=== PATIENT | female | born 1945 | race Asian ===

== ENCOUNTER 2021-05-26 08:28 | Inpatient (IN) | payer BC, MEDICAID, SELFPAY ==
[~2021-05-26] VITALS: Ht 154.9 cm; Wt 59.0 kg
--- NOTE | 2021-05-26 08:31 | NUR ---
Placed in room 3 . Placed on compliance monitor, blood pressure machine and pulse oximeter. To gown for exam. Side rails up. Report given to TREVON Desir.
[2021-05-26 08:32] VITALS: BP_SYST 175
--- NOTE | 2021-05-26 08:35 | NUR ---
DR SZYMANSKI AT BEDSIDE FOR EVALUATION
--- NOTE | 2021-05-26 08:45 | NUR ---
SUMM: Pt. bib ACLS from home with ALOC, pt. awake but non verbal, reported hx. of HTN and DM, accu check 462, 2nd IV line placed and labs drawn, EKG done, pt. placed in gown and clean was incontinent of stool, in and out schultz done to obtain urine sample urine clear but pink, O2 sat 93% on RA placed on NC at 2L/min with sat. increasing to 95%, LR hung and infusing
[2021-05-26 08:59] LABS: BASOPHILS % (AUTO) 0.5 % (0.0-2.0); EOSINOPHILS % (AUTO) 0.8 % (0.0-4.0); HEMATOCRIT 39.9 % (36-48); HEMOGLOBIN 12.4 g/dL (12.0-16.0); LYMPHOCYTES # (AUTO) 0.7 K/uL (1.0-5.5); LYMPHOCYTES % (AUTO) 14.3 % (20.5-51.5); MEAN CORPUSCULAR HEMOGLOBIN 21 pg (27-31); MEAN CORPUSCULAR HGB CONC 31 % (32-36); MEAN CORPUSCULAR VOLUME 67 fL (79.0-98.0); MONOCYTES % (AUTO) 0.3 % (1.7-9.3); NEUTROPHILS # (AUTO) 4.1 K/uL (1.8-7.7); NEUTROPHILS % (AUTO) 84.1 % (40.0-70.0); PLATELET COUNT (AUTO) 266 K/uL (130-430); RED BLOOD CELL COUNT(AUTO) 5.93 MIL/uL (4.2-6.2); RED CELL DISTRIBUTION WIDTH 15.8 % (9.0-15.0); WHITE BLOOD COUNT (AUTO) 4.8 K/uL (4.8-10.8)
--- NOTE | 2021-05-26 09:03 | NUR ---
Pt. more awake, able to tell me her name with arousing and able to follow simple commands
[2021-05-26 09:12] LABS: BILIRUBIN,URINE NEGATIVE (NEGATIVE); BLOOD, URINE 3+ (NEGATIVE); CLARITY/URINE SL CLOUDY (CLEAR); COLOR,URINE BROWN (YELLOW); GLUCOSE,URINE 3+ (NEGATIVE); KETONES,URINE NEGATIVE (NEGATIVE); LEUKOCYTE ESTERASE ,URINE NEGATIVE (NEGATIVE); NITRITE, URINE POSITIVE (NEGATIVE); PROTEIN URINE 2+ (NEGATIVE); UROBILINOGEN,URINE 0.2 (0.2-1.0)
--- NOTE | 2021-05-26 09:20 | NUR ---
spoke with patients son who stated pt. is typically talkative, and oriented, states she did not go home last night, he is aware she takes oral medications for DM, requested him to obtain list of medications, he will call back
--- NOTE | 2021-05-26 09:22 | NUR ---
radiology at bedside for chest xray
--- NOTE | 2021-05-26 09:24 | NUR ---
Patient transported to radiology via gurney, accompanied by staff.
--- NOTE | 2021-05-26 09:41 | NUR ---
Pt. sleepy, arousable, oriented X4
[2021-05-26 09:44] LABS: BARBITURATE, URINE NEGATIVE (NEG <=200); BENZODIAZEPINE, URINE NEGATIVE (NEG <=150); CANNABINOID, URINE NEGATIVE (NEG <=50); COCAINE, URINE NEGATIVE (NEG <=150); METHAMPHETAMINES SCREEN,URINE NEGATIVE (NEG <=500); OPIATE, URINE NEGATIVE (NEG <=100); PHENCYCLIDINE SCREEN,URINE NEGATIVE (NEG <=25); UR TRICYCLIC ANTIDEPRESSANTS NEGATIVE (NEG <=300); URINE AMPHETAMINE NEGATIVE (NEG <=500); URINE METHADONE NEGATIVE (NEG <=200); URINE OXYCODONE SCREEN NEGATIVE (NEG <=100); URINE PROPOXYPHENE SCREEN NEGATIVE (NEG <=300)
--- NOTE | 2021-05-26 09:58 | NUR ---
Pts. cousin at bedside
[2021-05-26] MEDS ORDERED: NACL 0.9% 1,000 ML IV ONE (10:15)
--- NOTE | 2021-05-26 10:31 | NUR ---
Pt. requested to use bathroom, placed on bedpan voided small amount of blood tinged urine
[2021-05-26 10:33] LABS: INR 0.9 (0.8-1.2); PROTHROMBIN TIME 9.4 SECS (9.5-12.5)
[2021-05-26 10:47] LABS: CHLORIDE 102 mmol/L (98-107); SODIUM SERUM 137 mmol/L (136-145)
[2021-05-26 10:53] LABS: ALANINE AMINOTRANSFERASE 29 U/L (12-78); ALBUMIN 2.5 g/dL (3.4-4.8); ASPARTATE AMINOTRANSFERASE 40 U/L (10-37); CALCIUM 9.7 mg/dL (8.4-11.0); TOTAL BILIRUBIN 0.4 mg/dL (0.0-1.0)
[2021-05-26 10:54] LABS: ANION GAP 16 (5-15)
[2021-05-26 10:56] LABS: GLUCOSE 483 mg/dL (70-99)
[2021-05-26 10:57] LABS: ACETAMINOPHEN < 1 ug/mL (1-30); ALCOHOL, BLOOD < 3 mg/dL (<10)
[2021-05-26 10:59] LABS: CREATININE 1.78 mg/dL (0.55-1.30); POTASSIUM 3.3 mmol/L (3.5-5.1); UREA NITROGEN, BLOOD 33 mg/dL (8-21)
[2021-05-26 11:18] LABS: ACETONE, SERUM NEGATIVE (NEGATIVE)
[2021-05-26 11:19] LABS: C-REACTIVE PROTEIN QUANT < 0.2 mg/dL (0-0.5)
[2021-05-26 11:28] LABS: BACTERIA,URINE MODERATE /HPF (None Seen); RBC,URINE >100 /HPF (0-3); WBC,URINE 0-3 /HPF (0-3)
[2021-05-26] MEDS ORDERED: MONT10TA22 (11:38)
[2021-05-26] MEDS ORDERED: ALPR0.25 PO (11:38)
[2021-05-26] MEDS ORDERED: MONT10TA33 PO (11:38)
[2021-05-26] MEDS ORDERED: DOCU250C14 PO (11:38)
[2021-05-26] MEDS ORDERED: LOSA25TA3 PO (11:38)
[2021-05-26] MEDS ORDERED: METF-518 PO (11:38)
[2021-05-26] MEDS ORDERED: SITA100T11 PO (11:38)
[2021-05-26] MEDS ORDERED: MELA1TAB29 PO (11:38)
--- NOTE | 2021-05-26 11:39 | NUR ---
Medication reconciliation completed with information provided by pts. son and cousin, unable to confirm doses of some prescriptions. Any prior medication reconciliation on file was reviewed and corrected.
[2021-05-26] MEDS ORDERED: cefTRIAXone 1 GM VIAL ONE (11:44)
[2021-05-26] MEDS ORDERED: INSULIN REGULAR, HUMAN 10 UNITS/0.1 ML INJ IVP ONE (11:45)
[2021-05-26] MEDS ORDERED: cefTRIAXone 1 GM in D5W 50 ML IV ONE (11:45)
--- NOTE | 2021-05-26 12:01 | NUR ---
admit orders rec'd from Dr. Tam
--- NOTE | 2021-05-26 12:25 | NUR ---
Assisted OOB to void per pt request
--- NOTE | 2021-05-26 12:45 | NUR ---
Patient will be admitted to care of Dr Tam. Admitted to tele unit. Will go to room 120A. Belongings list completed. Complete and up to date summary report printed. SBAR report given at bedside with Alan LESTER opportunity for questions.
--- NOTE | 2021-05-26 13:08 | NUR ---
CONSULTATION PAGED REASON FOR CONSULTATION:UTI WAS CONSULT CALLED?Y PERSON WHO WAS NOTIFIED:CISCO CONSULTING PHYSICIAN:SAVANNA GALLARDO BUNCHER MACHINE SPECIALTY:INFECTIOUS DISEASE BUNCHER MACHINE PHONE NUMBER:[phone] REQUESTING PHYSICIAN:ELIAS HOUSE
--- NOTE | 2021-05-26 13:19 | NUR ---
CONSULTATION PAGED REASON FOR CONSULTATION:ALTERED LEVEL OF CONSCIOUSNESS WAS CONSULT CALLED?Y PERSON WHO WAS NOTIFIED: CONSULTING PHYSICIAN:KAI MARTI VOICE PATHOLOGIST SPECIALTY:NEURO VOICE PATHOLOGIST PHONE NUMBER:[phone] REQUESTING PHYSICIAN:ELIAS HOUSE
[2021-05-26 13:25] VITALS: BP_SYST 133
--- NOTE | 2021-05-26 13:25 | NUR ---
Note Dr Smith Blue (ID) called and update on pt's status given. MD will be in this evening to assess pt and write orders.
[2021-05-26 13:29] VITALS: BP_SYST 133
[2021-05-26] MEDS: NACL 0.9% 1,000 ML IV SCH ×2 (14:30→23:09)
--- NOTE | 2021-05-26 14:30 | NUR ---
NOTE Dr Francis (neuro) came to assess pt at 1400. Dr Francis spoke to pt's cousin Kalpana - she will be coming in to see pt. Pt non verbal to RN trying to do H&P. Unable to orient pt to nursing routines and procedures. Call light within reach. Pt next to nurses' station for close observation all shift. Tele unit attached and intact since admission to floor.
[2021-05-26 16:05] VITALS: BP_SYST 131
--- NOTE | 2021-05-26 16:10 | NUR ---
NOTE Pt's cousin Kalpana and pt's son Rafi at pt's bedside. Gave medical information on pt. Point of contact 1) Rafi (son) [phone]. 2) Teresa (daughter) [phone]. Pt opens eyes for family, no interaction noted. Pt fell back to sleep. Call light within reach.
--- NOTE | 2021-05-26 18:00 | NUR ---
Note Pt asleep at this time. Pt's bed in low position and bed alarm on all shift. Tele unit attached and intact. LAC IV intact and patent infusing IVF's well. Pt checked on q1' and PRN all shift for needs and care. Pt next to nurses' station for close observation. Call light within reach.
--- NOTE | 2021-05-26 19:15 | NUR ---
RECEIVED BEDSIDE REPORT. PT IN BED ASLEEP WITH EYES CLOSED. RR EVEN AND UNLABORED ON RA. CALL LIGHT WITHIN REACH. BED RAILS UPX2. HOB ELEVATED. ALL NEEDS MEET AT THIS TIME. WILL CONTINUE TO MONITOR.
[2021-05-26 22:45] VITALS: BP_SYST 140
[2021-05-27 00:42] VITALS: BP_SYST 138
--- NOTE | 2021-05-27 01:00 | NUR ---
ACCU CHECK ADDED ACHS PER DR ALVARADO. NO COVERAGE AT THIS TIME DUE TO PT BEING NPO. DR. ALVARADO SAID TO NOTIFY DR FIGUEREDO IN AM FOR COVERAGE. WILL ENDORSE TO DAY RN.
--- NOTE | 2021-05-27 06:49 | NUR ---
PT SLEPT THROUGH NIGHT. PT ABLE TO REQUEST FOR BEDPAN WHEN SHE NEEDS IT. PT WAS CALM ALL NIGHT. PT DID NOT TRY TO GET OUT OF BED. PT CONTINUES TO BE NPO. WILL ENDORSE CARE TO DAY RN.
--- NOTE | 2021-05-27 07:45 | NUR ---
Opening Notes Patient is awake, alert and oriented x4. NO noted confusion or AMS. No resp distress noted. Breathing is even and unlabored. Pt denies any pain at this time. IV site on right AC 20 gauge intact at this time. IV on left AC 20 gauge is out, no bleeding noted. NS @ 100 cc/hr, infusing well. Pt is able to follow simple commands. Able to turn in bed to use bedpan. Pt remains NPO at this time. All needs met. Safety and fall precautions in place. Bed in lowest position, alarm on, locked. Will continue to monitor.
[2021-05-27 08:00] VITALS: BP_SYST 142
--- NOTE | 2021-05-27 08:30 | NUR ---
Nurse s/w son Rafi, and updated family on patient status and plan of care. Son would like Dr. Tam to call him for an update. Will follow up.
--- NOTE | 2021-05-27 08:45 | NUR ---
Patient is being seen and examined by DR. URIBE.
[2021-05-27] MEDS: NACL 0.9% 1,000 ML IV SCH ×2 (08:49→17:31)
[2021-05-27 08:58] LABS: HEMATOCRIT 34.8 % (36-48); HEMOGLOBIN 10.8 g/dL (12.0-16.0); MEAN CORPUSCULAR HEMOGLOBIN 21 pg (27-31); MEAN CORPUSCULAR HGB CONC 31 % (32-36); MEAN CORPUSCULAR VOLUME 67 fL (79.0-98.0); PLATELET COUNT (AUTO) 185 K/uL (130-430); RED BLOOD CELL COUNT(AUTO) 5.21 MIL/uL (4.2-6.2); RED CELL DISTRIBUTION WIDTH 16.1 % (9.0-15.0)
--- NOTE | 2021-05-27 09:17 | NUR ---
CRITICAL LAB: Laboratory called with critical lab value wbs 36.1. Medical record number and patient name verified. Read back of values done. dr luisana dover, waiting for callback. Addendum: 05/27/21 at 1020 by Alexandra Fraser RN WBC*
[2021-05-27 09:52] LABS: WHITE BLOOD COUNT (AUTO) 36.1 K/uL (4.8-10.8)
[2021-05-27 10:12] LABS: ALANINE AMINOTRANSFERASE 40 U/L (12-78); ALBUMIN 1.9 g/dL (3.4-4.8); ANION GAP 15 (5-15); CALCIUM 7.9 mg/dL (8.4-11.0); CHLORIDE 108 mmol/L (98-107); CREATININE 1.74 mg/dL (0.55-1.30); GLUCOSE 363 mg/dL (70-99); POTASSIUM 3.2 mmol/L (3.5-5.1); SODIUM SERUM 141 mmol/L (136-145); TOTAL BILIRUBIN 0.5 mg/dL (0.0-1.0); UREA NITROGEN, BLOOD 39 mg/dL (8-21)
[2021-05-27 10:58] LABS: ATYPICAL LYMPHOCYTES % 0 % (0-0); BAND % (MANUAL) 10 % (0-6); LYMPHOCYTES % (MANUAL) 3 % (20-46); MONOCYTES % (MANUAL) 4 % (0-11)
[2021-05-27 10:59] LABS: BASOPHILS % (MANUAL) 0 % (0-2); EOSINOPHILS % (MANUAL) 0 % (0-7)
[2021-05-27] MEDS ORDERED: POTASSIUM CHLORIDE 20 MEQ TAB.PRT.SR PO ONE (11:15)
[2021-05-27] MEDS ORDERED: INSULIN REGULAR, HUMAN 100 UNITS/ML, 10 ML VIAL SUBCUT SCH (11:30)
--- NOTE | 2021-05-27 11:41 | NUR ---
Nutrition Update Abel Scale 18 noted. Pt admitted for altered mental status, UTI. Diet: [facility] BMI: 26.3 kg/m2 RD to follow per nutrition care standards.
[2021-05-27 12:00] VITALS: BP_SYST 149
--- NOTE | 2021-05-27 12:00 | NUR ---
Notes Patient is awake, alert and oriented x4. Neurochecks within normal limits. No resp distress noted. Breathing is even and unlabored. Pt denies any pain at this time. IVF infusing as ordered. Nurse assisted patient to the bathroom, unsteady gait, supervision needed. Will continue to monitor.
--- NOTE | 2021-05-27 12:00 | NUR ---
Notes Patient is laying in bed, resting at this time. No resp distress noted. Breathing is even and unlabored. NO signs of pain. Will continue to monitor.
[2021-05-27 12:15] LABS: ASPARTATE AMINOTRANSFERASE 46 U/L (10-37)
[2021-05-27 12:19] LABS: HEMATOCRIT 34.2 % (36-48); HEMOGLOBIN 10.5 g/dL (12.0-16.0); MEAN CORPUSCULAR HEMOGLOBIN 21 pg (27-31); MEAN CORPUSCULAR HGB CONC 31 % (32-36); MEAN CORPUSCULAR VOLUME 67 fL (79.0-98.0); PLATELET COUNT (AUTO) 185 K/uL (130-430); RED BLOOD CELL COUNT(AUTO) 5.09 MIL/uL (4.2-6.2); RED CELL DISTRIBUTION WIDTH 16.2 % (9.0-15.0)
[2021-05-27 12:31] LABS: WHITE BLOOD COUNT (AUTO) 34.6 K/uL (4.8-10.8)
--- NOTE | 2021-05-27 12:34 | NUR ---
CRITICAL LAB: Laboratory called with critical lab value WBC 34.6 (REDRAW). Medical record number and patient name verified. Read back of values done. DR LOZADA notified of value. NEW orders given at this time, INFORM DR. ALVARADO.
[2021-05-27 12:35] LABS: ATYPICAL LYMPHOCYTES % 0 % (0-0); BAND % (MANUAL) 12 % (0-6); BASOPHILS % (MANUAL) 0 % (0-2); EOSINOPHILS % (MANUAL) 0 % (0-7); LYMPHOCYTES % (MANUAL) 4 % (20-46); MONOCYTES % (MANUAL) 4 % (0-11)
[2021-05-27] MEDS ORDERED: NACL 0.9% 1,000 ML IV SCH (13:00)
[2021-05-27] MEDS ORDERED: INSULIN REGULAR, HUMAN 100 UNITS/ML, 10 ML VIAL (humuLIN R) SUBCUT PRN (13:00)
[2021-05-27] MEDS ORDERED: HYDROcodone/ACETAMIN 5-325 MG TAB (NORCO/ VICODIN) PO PRN (13:00)
[2021-05-27] MEDS ORDERED: ACETAMINOPHEN 325 MG TABLET PO PRN (13:00)
[2021-05-27] MEDS ORDERED: HYDROcodone/ACETAMIN 10-325 MG TAB PO PRN (13:00)
[2021-05-27] MEDS ORDERED: NALOXONE HCL 0.4 MG/ML AMP (NARCAN) IVP PRN ×2 (13:00)
--- NOTE | 2021-05-27 13:29 | NUR ---
Family by bedside. Nurse updated son, Rafi on patient status and following plan of care.
--- NOTE | 2021-05-27 13:30 | NUR ---
Patient is being seen and examined by DR LOZADA.
[2021-05-27] MEDS ORDERED: cloNIDine HCL 0.1 MG TABLET PO ONE (13:45)
--- NOTE | 2021-05-27 14:00 | NUR ---
Notes Patient is laying in bed. Family by bedside. No resp distress noted. Denies any pain. IVF infusing as ordered. Will continue to monitor.
--- NOTE | 2021-05-27 14:33 | NUR ---
CONSULT NEPHROLOGY GREGORY DR NICOLAS [phone] DR WOOD TOWER CLEANER S/W [place] EXCHANGE
--- NOTE | 2021-05-27 14:43 | NUR ---
CONSULT ENDOCRINOLOGY DM UNCONTROLLED DR ARMENTA-SAYED,[facility] [phone] NO ANSWER LEFT VM
--- NOTE | 2021-05-27 14:54 | NUR ---
CONSULT CARDIOLOGY HYPERTENSION ALICJA GOODMAN [phone] S/W [place] EXCHANGE
--- NOTE | 2021-05-27 15:20 | NUR ---
US RENAL at bedside
--- NOTE | 2021-05-27 15:20 | NUR ---
P.T. NOTES P.T. EVAL COMPLETED; REFER TO EVAL FOR DETAILS.
[2021-05-27 16:00] VITALS: BP_SYST 144
--- NOTE | 2021-05-27 16:48 | NUR ---
Dietitian Recommendations * CCHO, 2 gm Na diet w/ Glucerna BID (ONS provides 440 kcal/day, 20 gm protein/day) * Encourage increase PO intakes LP, RD Please refer to Nutrition Assessment for details. Addendum: 05/27/21 at [address] Amended: Links added.
[2021-05-27] MEDS: PIPERACILLIN/TAZO 3.375/DEX-IS 50 ML IV SCH ×2 (17:31→23:55)
[2021-05-27] MEDS: MONTELUKAST 10 MG TABLET PO SCH (17:31)
[2021-05-27] MEDS: INSULIN REGULAR, HUMAN 100 UNITS/ML, 10 ML VIAL (humuLIN R) SUBCUT PRN ×2 (17:33→21:08)
--- NOTE | 2021-05-27 18:47 | NUR ---
Closing Notes Patient is awake, alert and oriented x4. Neurochecks within normal limits. No resp distress noted. Breathing is even and unlabored. Pt denies any pain at this time. IV site on right AC 20 gauge intact. NS @ 100 cc/hr, infusing well. IV ATB infusing well. Pt remains on bedrest for now. Pending PT evaluation, GI consult and cardiac consult. All needs met at this time. Safety and fall precautions in place. Bed in lowest position, alarm on, locked. Will continue to monitor.
--- NOTE | 2021-05-27 19:10 | NUR ---
RECEIVED BEDSIDE REPORT. PT IN BED AWAKE. PT MORE ALERT THAN DAY BEFORE. PT EDUCATED TO USE CALL LIGHT IF SHE NEEDS ASSISTANCE. BED ALARM ON. BED RAILS UPX2. WILL CONTINUE TO MONITOR.
[2021-05-27] MEDS: ONDANSETRON HCL 4 MG/2 ML VIAL IVP PRN (20:18)
[2021-05-27] MEDS: DOCUSATE SODIUM 250 MG CAPSULE PO SCH (20:55)
[2021-05-27 21:04] VITALS: BP_SYST 140
--- NOTE | 2021-05-27 21:05 | NUR ---
Jeremi ALVARADO for critical lab result procalcitonin Addendum: 05/27/21 at 2115 by Sue Patel RN Dr. Alvarado call back will monitor and he will see the patient inna
[2021-05-28 00:40] VITALS: BP_SYST 141
[2021-05-28] MEDS: NACL 0.9% 1,000 ML IV SCH ×2 (05:14→18:13)
[2021-05-28] MEDS: PIPERACILLIN/TAZO 3.375/DEX-IS 50 ML IV SCH ×3 (05:19→18:07)
--- NOTE | 2021-05-28 06:26 | NUR ---
PT SLEPT THROUGH NIGHT. PT ABLE TO USE BEDPAN ON HER OWN. PT DID NOT TRY AND GET OUT OF BED. HOB ELEVATED. BED RAILS UPX2. WILL ENDORSE CARE TO DAY RN.
[2021-05-28] MEDS: INSULIN REGULAR, HUMAN 100 UNITS/ML, 10 ML VIAL (humuLIN R) SUBCUT PRN ×4 (06:42→21:55)
[2021-05-28 07:43] LABS: HEMATOCRIT 33.6 % (36-48); HEMOGLOBIN 10.1 g/dL (12.0-16.0); MEAN CORPUSCULAR HEMOGLOBIN 20 pg (27-31); MEAN CORPUSCULAR HGB CONC 30 % (32-36); MEAN CORPUSCULAR VOLUME 67 fL (79.0-98.0); PLATELET COUNT (AUTO) 171 K/uL (130-430); RED BLOOD CELL COUNT(AUTO) 4.98 MIL/uL (4.2-6.2); RED CELL DISTRIBUTION WIDTH 16.3 % (9.0-15.0); WHITE BLOOD COUNT (AUTO) 35.6 K/uL (4.8-10.8)
[2021-05-28 07:50] VITALS: BP_SYST 175
--- NOTE | 2021-05-28 07:50 | NUR ---
INITIAL ROUNDS Received pt AAOx3, no s/s resp distress, no c/o pain, pt c/o trouble sleeping-will inform MD-pt may need something to help her sleep. Pt assisted to the bathroom, voided and assisted back to bed. Plan of care for the day reviewed-pt verbalized her understanding. IVF infusing well to RAC at ordered rate with no s/s infiltration to site. Pain management, disease process, skin and safety discussed-teach back done. Call light within reach.
[2021-05-28] MEDS ORDERED: LOSARTAN POTASSIUM 25 MG TABLET PO SCH (09:00)
[2021-05-28] MEDS: DOCUSATE SODIUM 250 MG CAPSULE PO SCH ×2 (09:00→21:46)
[2021-05-28] MEDS ORDERED: MONTELUKAST 10 MG TABLET PO SCH (09:00)
[2021-05-28] MEDS: INSULIN GLARGINE 100 UNITS/ML 10 ML VIAL SUBCUT SCH (09:23)
[2021-05-28 09:30] LABS: BAND % (MANUAL) 12 % (0-6)
[2021-05-28 09:31] LABS: ATYPICAL LYMPHOCYTES % 0 % (0-0); BASOPHILS % (MANUAL) 0 % (0-2); EOSINOPHILS % (MANUAL) 0 % (0-7); LYMPHOCYTES % (MANUAL) 5 % (20-46); MONOCYTES % (MANUAL) 5 % (0-11)
[2021-05-28 09:37] LABS: ERYTHROCYTE SEDIMENTATION RATE 70 MM/HR (0-20)
[2021-05-28 09:40] LABS: ALANINE AMINOTRANSFERASE 32 U/L (12-78); ALBUMIN 1.6 g/dL (3.4-4.8); ANION GAP 13 (5-15); ASPARTATE AMINOTRANSFERASE 35 U/L (10-37); CHLORIDE 107 mmol/L (98-107); GLUCOSE 200 mg/dL (70-99); PHOSPHORUS 2.5 mg/dL (2.7-4.5); POTASSIUM 3.6 mmol/L (3.5-5.1); SODIUM SERUM 139 mmol/L (136-145); TOTAL BILIRUBIN 0.6 mg/dL (0.0-1.0); UREA NITROGEN, BLOOD 31 mg/dL (8-21)
--- NOTE | 2021-05-28 12:40 | NUR ---
TO CT Pt left floor via wheelchair to CT in no distress.
[2021-05-28 12:43] LABS: THYROID STIMULATING HORMONE 2.89 uIu/mL (0.34-4.82)
[2021-05-28 12:50] LABS: C-REACTIVE PROTEIN QUANT 31.4 mg/dL (0-0.5)
--- NOTE | 2021-05-28 12:55 | NUR ---
BACK FROM CT Pt back from CT in no distress.
[2021-05-28 16:28] LABS: TOTAL IRON BIND. CAPACITY 192 ug/dL (250-450)
[2021-05-28 16:35] VITALS: BP_SYST 155
[2021-05-28] MEDS: MONTELUKAST 10 MG TABLET PO SCH (18:00)
[2021-05-28] MEDS: ONDANSETRON HCL 4 MG/2 ML VIAL IVP PRN (18:39)
--- NOTE | 2021-05-28 18:44 | NUR ---
NAUSEA Pt c/o feeling nauseated-pt given Zofran as ordered. Light turned down low to promote rest. Call light within reach.
--- NOTE | 2021-05-28 19:25 | NUR ---
RECEIVED BEDSIDE REPORT FROM RN. PT IN BED RESTING. PT EDUCATED TO USE CALL LIGHT IF SHE NEEDS ASSISTANCE. CALL LIGHT WITHIN REACH. BED ALARM ON. BED RAILS UPX2. WILL CONTINUE TO MONITOR.
--- NOTE | 2021-05-28 19:25 | NUR ---
CLOSING NOTE/NAUSEA Pt now resting quietly in bed with no further c/o nausea, no s/s resp distress, no c/o pain or discomfort. IVF infusinf well to RAC at ordered rate with no s/s infiltration to site. All skin and safety precautions remain in place. Call light within reach.
[2021-05-28 21:43] VITALS: BP_SYST 182
[2021-05-28] MEDS: MELATONIN 3 MG TABLET PO SCH ×2 (21:46→21:49)
[2021-05-29] VITALS (8 sets, daily range): BP systolic 145–179
[2021-05-29] MEDS: PIPERACILLIN/TAZO 3.375/DEX-IS 50 ML IV SCH ×4 (00:38→17:18)
[2021-05-29] MEDS: LORazepam 2 MG/ML VIAL IVP PRN (00:55)
--- NOTE | 2021-05-29 01:45 | NUR ---
PT CO ANXIOUSNESS AND NOT BEING ABLE TO SLEEP. PT MEDICATED PER MAR. PT EDUCATED TO USE CALL LIGHT IF SHE NEEDS ASSISTANCE.
--- NOTE | 2021-05-29 05:00 | NUR ---
PT IN BED ATTEMPTING TO USE BEDPAN. PT DID NOT WITH USE CALL LIGHT. PT STATED SHE SLIDE OUT OF THE BED AND BUMPED HER HEAD SOFTLY ON THE SIDE OF THE BED SHE WAS SLIDING OUT. FALL WAS UNWITNESSED. PT HELPED BACK TO BED. VITALS TAKEN. PT DID NOT HAVE ANY BETTS ON HER HEAD. , CHARGE NURSE AND HOUSE SUP NOTIFIED OF FALL.
[2021-05-29] MEDS ORDERED: hydrALAZINE HCL 20 MG/ML VIAL IVP ONE (05:15)
[2021-05-29] MEDS ORDERED: hydrALAZINE HCL 20 MG/ML VIAL ONE (05:40)
[2021-05-29] MEDS: NACL 0.9% 1,000 ML IV SCH ×3 (05:44→22:45)
[2021-05-29] MEDS: INSULIN REGULAR, HUMAN 100 UNITS/ML, 10 ML VIAL (humuLIN R) SUBCUT PRN (06:36)
--- NOTE | 2021-05-29 07:00 | NUR ---
FAMILY CALLED TO BE UPDATED ON PT FALL. NO ANSWER FROM SON OR DAUGHTER. DAY RN UPDATED ON FALL. CARE ENDORSED TO DAY RN.
[2021-05-29 07:50] LABS: ALANINE AMINOTRANSFERASE 25 U/L (12-78); ALBUMIN 1.7 g/dL (3.4-4.8); ANION GAP 13 (5-15); ASPARTATE AMINOTRANSFERASE 24 U/L (10-37); C-REACTIVE PROTEIN QUANT 22.6 mg/dL (0-0.5); CALCIUM 7.4 mg/dL (8.4-11.0); CHLORIDE 110 mmol/L (98-107); CREATININE 1.21 mg/dL (0.55-1.30); GLUCOSE 185 mg/dL (70-99); PHOSPHORUS 2.1 mg/dL (2.7-4.5); POTASSIUM 3.5 mmol/L (3.5-5.1); SODIUM SERUM 141 mmol/L (136-145); TOTAL BILIRUBIN 0.6 mg/dL (0.0-1.0); UREA NITROGEN, BLOOD 21 mg/dL (8-21)
[2021-05-29 08:13] LABS: BASOPHILS # (AUTO) 0.2 K/uL (0.0-0.2); BASOPHILS % (AUTO) 0.7 % (0.0-2.0); EOSINOPHILS # (AUTO) 0.3 K/uL (0.0-0.4); HEMATOCRIT 35.1 % (36-48); HEMOGLOBIN 10.7 g/dL (12.0-16.0); LYMPHOCYTES # (AUTO) 2.5 K/uL (1.0-5.5); LYMPHOCYTES % (AUTO) 7.9 % (20.5-51.5); MEAN CORPUSCULAR HEMOGLOBIN 21 pg (27-31); MEAN CORPUSCULAR HGB CONC 31 % (32-36); MEAN CORPUSCULAR VOLUME 67 fL (79.0-98.0); MONOCYTES # (AUTO) 0.5 K/uL (0.0-1.0); MONOCYTES % (AUTO) 1.8 % (1.7-9.3); NEUTROPHILS # (AUTO) 27.7 K/uL (1.8-7.7); PLATELET COUNT (AUTO) 192 K/uL (130-430); RED BLOOD CELL COUNT(AUTO) 5.24 MIL/uL (4.2-6.2); RED CELL DISTRIBUTION WIDTH 16.2 % (9.0-15.0)
[2021-05-29] MEDS: ATORVASTATIN 20 MG TABLET PO SCH (08:49)
[2021-05-29] MEDS: DOCUSATE SODIUM 250 MG CAPSULE PO SCH ×2 (08:49→22:44)
[2021-05-29] MEDS: ASPIRIN 81 MG TAB.CHEW PO SCH (08:49)
[2021-05-29] MEDS: LOSARTAN POTASSIUM 25 MG TABLET PO SCH (08:49)
[2021-05-29] MEDS: INSULIN GLARGINE 100 UNITS/ML 10 ML VIAL SUBCUT SCH (09:00)
--- NOTE | 2021-05-29 09:14 | NUR ---
PT VERY DROWSY, EVEN AFTER PT TAKEN TO CT, SPOT CHECK FOR BS DONE , IT WAS 137. WILL WAKE UP TO BREAKFAST AND MEDS.
[2021-05-29] MEDS ORDERED: INSULIN GLARGINE 100 UNITS/ML 10 ML VIAL SUBCUT ONE (09:30)
[2021-05-29 09:48] LABS: WHITE BLOOD COUNT (AUTO) 31.2 K/uL (4.8-10.8)
[2021-05-29 09:49] LABS: NEUTROPHILS % (AUTO) 88.6 % (40.0-70.0)
[2021-05-29] MEDS ORDERED: amLODIPine BESYLATE 5 MG TABLET PO ONE (10:30)
[2021-05-29 12:24] LABS: ERYTHROCYTE SEDIMENTATION RATE 77 MM/HR (0-20)
[2021-05-29] MEDS: MONTELUKAST 10 MG TABLET PO SCH (17:18)
--- NOTE | 2021-05-29 18:00 | NUR ---
PT SON CALLED AND GIVEN UPDATE ON PT'S STATUS.
--- NOTE | 2021-05-29 21:15 | NUR ---
assist PATIENT OUT OF BED to REST ROOM AMBULATED WITH ASSIST FALL MEASURES IMPLEMENTED PROCEDURES EXPLAINED tolerated no SOB noted .
[2021-05-29] MEDS: MELATONIN 3 MG TABLET PO SCH (22:44)
[2021-05-30 00:13] VITALS: BP_SYST 149
[2021-05-30] MEDS: PIPERACILLIN/TAZO 3.375/DEX-IS 50 ML IV SCH ×4 (00:26→17:17)
--- NOTE | 2021-05-30 02:57 | NUR ---
HOURLY ROUNDING Patient awake assist out of bed to Rest Room FALL MEASURES IMPLEMENTED skin dry warm position change tolerated FREQUENT MONITOR FOR SAFETY & EFFECTIVE .
--- NOTE | 2021-05-30 05:51 | NUR ---
ZOSYN 3.375 GM IVPB ADMINISTER as ordered no s/sx of adverse reaction chest movement remains symmetrical also unlabored
[2021-05-30] MEDS: NACL 0.9% 1,000 ML IV SCH ×2 (06:30→17:16)
--- NOTE | 2021-05-30 07:37 | NUR ---
PHYSICAL THERAPY CO-SIGN The Physical Therapy Progress Notes documented by Assistant Production Manager have been reviewed. Reviewed/Co-Signed by: Valentin Sena Documentation Done by: LOBO IQBAL PTA Addendum: 05/30/21 at 0737 by Valentin Sena PT Amended: Links added.
[2021-05-30 08:11] VITALS: BP_SYST 189
--- NOTE | 2021-05-30 08:30 | NUR ---
PT APPEARS MORE AWAKE AND ALERT TODAY. NO C/O PAIN. NO SOB. BP STILL ELEVATED. WILL MEDICATE.
[2021-05-30] MEDS: LOSARTAN POTASSIUM 25 MG TABLET PO SCH (08:35)
[2021-05-30] MEDS: ASPIRIN 81 MG TAB.CHEW PO SCH (08:35)
[2021-05-30] MEDS: ATORVASTATIN 20 MG TABLET PO SCH (08:35)
[2021-05-30] MEDS: DOCUSATE SODIUM 250 MG CAPSULE PO SCH ×2 (08:35→21:00)
[2021-05-30] MEDS: INSULIN GLARGINE 100 UNITS/ML 10 ML VIAL SUBCUT SCH (08:37)
[2021-05-30] MEDS ORDERED: amLODIPine BESYLATE 5 MG TABLET PO SCH (09:00)
[2021-05-30] MEDS: CARVEDILOL 6.25 MG TABLET (COREG) PO SCH ×2 (11:01→21:49)
[2021-05-30] MEDS: INSULIN REGULAR, HUMAN 100 UNITS/ML, 10 ML VIAL (humuLIN R) SUBCUT PRN (11:43)
--- NOTE | 2021-05-30 13:00 | NUR ---
PT'S FRIEND AT BEDSIDE. PT APPEARS STABLE.
[2021-05-30 13:15] VITALS: BP_SYST 155
--- NOTE | 2021-05-30 15:00 | NUR ---
PT RESTING IN BED, NO C/O PAIN, NO SOB.
[2021-05-30 16:08] VITALS: BP_SYST 122; BP_SYST 159
--- NOTE | 2021-05-30 16:30 | NUR ---
DR MADDENSAYED WAS HERE AND SEEN PT. SAID HE WILL NOT CHANGE ANYTHING FAR PT BS IS CONCERNED.
[2021-05-30] MEDS: MONTELUKAST 10 MG TABLET PO SCH (17:15)
--- NOTE | 2021-05-30 18:27 | NUR ---
pt has been stable this shift. more alert compared to yesterday. no c/o pain, no sob. blood sugar was wnl. bp was elevated. made changes to her bp meds. will endorse to night nurse.
--- NOTE | 2021-05-30 19:35 | NUR ---
Received report and assumed care. Patient reports difficulty sleeping but no pain or distress. No signs of neurological deficits as patient able to ambulate to the bathroom under supervision. Calm and cooperative; will continue to monitor.
[2021-05-30 20:00] VITALS: BP_SYST 178
[2021-05-30] MEDS: MELATONIN 3 MG TABLET PO SCH (21:00)
--- NOTE | 2021-05-30 21:20 | NUR ---
Assessment completed. Glucoscan completed; BS 190 will cover as per sliding scale.
[2021-05-30] MEDS ORDERED: CARVEDILOL 6.25 MG TABLET (COREG) ONE (21:30)
[2021-05-30] MEDS: LORazepam 2 MG/ML VIAL IVP PRN (21:50)
--- NOTE | 2021-05-30 22:30 | NUR ---
Able to ambulate to the bathroom; reports loose stool while urinating.
[2021-05-31] VITALS (8 sets, daily range): BP systolic 136–213
[2021-05-31] MEDS: PIPERACILLIN/TAZO 3.375/DEX-IS 50 ML IV SCH ×2 (01:04→06:12)
[2021-05-31] MEDS: NACL 0.9% 1,000 ML IV SCH (01:06)
--- NOTE | 2021-05-31 06:20 | NUR ---
Morning antibiotic infusing. Blood glucose 85. Resting comfortably as patient appears to be sleeping. Arouses with light stimuli.
[2021-05-31 07:02] LABS: BASOPHILS # (AUTO) 0.1 K/uL (0.0-0.2); BASOPHILS % (AUTO) 1.1 % (0.0-2.0); EOSINOPHILS # (AUTO) 0.8 K/uL (0.0-0.4); EOSINOPHILS % (AUTO) 10.1 % (0.0-4.0); HEMATOCRIT 31.8 % (36-48); HEMOGLOBIN 10.1 g/dL (12.0-16.0); LYMPHOCYTES # (AUTO) 2.2 K/uL (1.0-5.5); LYMPHOCYTES % (AUTO) 26.6 % (20.5-51.5); MEAN CORPUSCULAR HEMOGLOBIN 21 pg (27-31); MEAN CORPUSCULAR HGB CONC 32 % (32-36); MEAN CORPUSCULAR VOLUME 66 fL (79.0-98.0); MONOCYTES # (AUTO) 0.8 K/uL (0.0-1.0); NEUTROPHILS # (AUTO) 4.2 K/uL (1.8-7.7); NEUTROPHILS % (AUTO) 52.2 % (40.0-70.0); PLATELET COUNT (AUTO) 224 K/uL (130-430); RED BLOOD CELL COUNT(AUTO) 4.79 MIL/uL (4.2-6.2); RED CELL DISTRIBUTION WIDTH 16.5 % (9.0-15.0); WHITE BLOOD COUNT (AUTO) 8.1 K/uL (4.8-10.8)
--- NOTE | 2021-05-31 07:20 | NUR ---
PHYSICAL THERAPY CO-SIGN The Physical Therapy Progress Notes documented by Brick Stacker have been reviewed. Reviewed/Co-Signed by: Valentin Sena Documentation Done by: LOBO IQBAL PTA Addendum: 05/31/21 at 0720 by Valentin Sena PT Amended: Links added.
[2021-05-31] MEDS: ASPIRIN 81 MG TAB.CHEW PO SCH (08:54)
[2021-05-31] MEDS: DOCUSATE SODIUM 250 MG CAPSULE PO SCH ×2 (08:54→20:46)
[2021-05-31] MEDS: CARVEDILOL 6.25 MG TABLET (COREG) PO SCH ×2 (08:55→20:46)
[2021-05-31] MEDS: amLODIPine BESYLATE 5 MG TABLET PO SCH (08:55)
[2021-05-31] MEDS: ATORVASTATIN 20 MG TABLET PO SCH (08:55)
[2021-05-31] MEDS: INSULIN GLARGINE 100 UNITS/ML 10 ML VIAL SUBCUT SCH (08:58)
[2021-05-31 08:59] LABS: ALANINE AMINOTRANSFERASE 19 U/L (12-78); ALBUMIN 1.7 g/dL (3.4-4.8); ANION GAP 9 (5-15); ASPARTATE AMINOTRANSFERASE 24 U/L (10-37); CALCIUM 8.3 mg/dL (8.4-11.0); CHLORIDE 111 mmol/L (98-107); CREATININE 0.99 mg/dL (0.55-1.30); GLUCOSE 80 mg/dL (70-99); SODIUM SERUM 143 mmol/L (136-145); TOTAL BILIRUBIN 0.2 mg/dL (0.0-1.0); UREA NITROGEN, BLOOD 10 mg/dL (8-21)
[2021-05-31 09:00] LABS: POTASSIUM 2.8 mmol/L (3.5-5.1)
[2021-05-31] MEDS ORDERED: POTASSIUM CHLORIDE 20 MEQ TAB.PRT.SR PO ONE ×2 (09:45→13:30)
[2021-05-31] MEDS: LOSARTAN POTASSIUM 25 MG TABLET PO SCH ×2 (10:16→20:45)
[2021-05-31] MEDS: INSULIN REGULAR, HUMAN 100 UNITS/ML, 10 ML VIAL (humuLIN R) SUBCUT PRN ×3 (12:10→20:49)
[2021-05-31] MEDS: cefTRIAXone 1 GM IVPB PREMIX 50 ML IV SCH (12:14)
--- NOTE | 2021-05-31 15:30 | NUR ---
HIGH BP SPOKE WITH DR TANNER DUE TO PATIENT BP IS 181/94, 81 HR. PER MD TO RECHECK BP AGAIN LATER AND GIVE HYDRALAZINE 10 MG IVP PRN WHEN SBP IS GREATER THAN 180. WILL CONT RECHECK BP AGAIN LATER. NO ADDITIONAL DISTRESS NOTED. PATIENT IS RESTING IN BED WATCHING TV.
--- NOTE | 2021-05-31 16:00 | NUR ---
NURSES NOTES: 0715 AM: PATIENT IS RESTING IN BED QUIETLY. NO ADDITIONAL DISTRESS NOTED. CALL LIGHT WITHIN REACH. BED IN LOW AND LOCK POSITION. STABLE CONDITION AT THIS TIME. WILL CONT TO MONITOR. 0800AM: PATIENT IS RESTING IN BED. EXPLAINED PLAN OF CARE AND SHE VERBALIZED UNDERSTANDING. PATIENT DOES NOT WANT TO EAT AT THIS TIME. SHE WANTS TO SLEEP. WILL CONT TO MONITOR. 0900AM: PATIENT REFUSED TO DO HER HYGIENE CARE AND WILL DO IT LATER. PATIENT WANTS TO SLEEP. WILL CONT TO MONITOR. 1000AM: PATIENT IS WALKING IN THE HALLWAY WITH PT. NO ADDITIONAL DISTRESS NOTED. WILL CONT TO MONITOR. 1200PM: PATIENT IS SITTING AT THE SIDE OF THE BED EATING THE FOOD THAT HER SISTER BROUGHT HER. NO ADDITIONAL DISTRESS NOTED. WILL CONT TO MONITOR. 1300: PATIENT IS IN THE RESTROOM DOING HER OWN HYGIENE. 1400: PATIENT IS RESTING IN BED, ASLEEP. WILL CONT TO MONITOR. 1600: PATIENT IS SITTING AT THE SIDE OF THE BED. NO ADDITIONAL DISTRESS NOTED. EATING FRUITS AND CHIT CHATTING WITH HER SISTERS AT THE BEDSIDE. WILL CONT TO MONITOR.
--- NOTE | 2021-05-31 16:00 | NUR ---
BP RECHECK 180/85 RAYO, 80 HR. NO ADDITIONAL DISTRESS NOTED. PATIENT IS SITTING AT THE SIDE OF THE BED EATING FRUITS. STABLE AT THIS TIME. WILL CONT TO MONITOR.
--- NOTE | 2021-05-31 17:00 | NUR ---
DM EDUCATION: SPOKE WITH PATIENT AND GAVE DM EDUCATION: PATHO, LIFESTYLE AND COMPLIANT WITH MEDICATION FOR 20 MINUTES. PATIENT VERBALIZED UNDERSTANDING.
[2021-05-31] MEDS: MONTELUKAST 10 MG TABLET PO SCH (18:30)
--- NOTE | 2021-05-31 18:59 | NUR ---
CLOSING NOTES: 1800: PATIENT IS SITTING AT THE SIDE OF THE BED. NO ADDITIONAL DISTRESS NOTED. 1845: PATIENT IS RESTING IN BED WATCHING TV. NO ADDITIONAL DISTRESS NOTED. STABLE CONDITION THROUGHOUT THE SHIFT. WILL CONT TO MONITOR.
[2021-05-31] MEDS: hydrALAZINE HCL 20 MG/ML VIAL IVP PRN (19:28)
--- NOTE | 2021-05-31 19:30 | NUR ---
With Elevated blood pressure, denies any headache , ambulate without dizziness, PRN and due meds will be given and will monitor Dr. Tam , Dr. Maris dover.
[2021-05-31] MEDS: MELATONIN 3 MG TABLET PO SCH (20:46)
--- NOTE | 2021-05-31 21:00 | NUR ---
Patient able to sleep after ativan was given , denies any headache no dizziness
[2021-05-31] MEDS: LORazepam 2 MG/ML VIAL IVP PRN (22:24)
[2021-05-31] MEDS ORDERED: hydrALAZINE HCL 25 MG TABLET ONE (22:43)
[2021-05-31] MEDS: hydrALAZINE HCL 25 MG TABLET PO SCH (22:51)
--- NOTE | 2021-06-01 | NUR ---
Seen and examined by LUIS A ALVARADO , and said patient can be discharge with IV antibiotic for 1 week.
[2021-06-01 00:11] VITALS: BP_SYST 193
--- NOTE | 2021-06-01 02:00 | NUR ---
Patient sleeping no sign of acute discomfort, provided safe/quiet environment.
[2021-06-01] MEDS: hydrALAZINE HCL 20 MG/ML VIAL IVP PRN (05:06)
[2021-06-01] MEDS: INSULIN REGULAR, HUMAN 100 UNITS/ML, 10 ML VIAL (humuLIN R) SUBCUT PRN ×3 (06:24→20:45)
[2021-06-01 06:27] VITALS: BP_SYST 149
[2021-06-01 06:46] LABS: BASOPHILS # (AUTO) 0.1 K/uL (0.0-0.2); EOSINOPHILS # (AUTO) 0.7 K/uL (0.0-0.4); EOSINOPHILS % (AUTO) 7.2 % (0.0-4.0); HEMATOCRIT 36.7 % (36-48); HEMOGLOBIN 11.5 g/dL (12.0-16.0); LYMPHOCYTES # (AUTO) 2.3 K/uL (1.0-5.5); LYMPHOCYTES % (AUTO) 23.6 % (20.5-51.5); MEAN CORPUSCULAR HEMOGLOBIN 21 pg (27-31); MEAN CORPUSCULAR HGB CONC 31 % (32-36); MEAN CORPUSCULAR VOLUME 66 fL (79.0-98.0); MONOCYTES # (AUTO) 1.1 K/uL (0.0-1.0); NEUTROPHILS # (AUTO) 5.7 K/uL (1.8-7.7); NEUTROPHILS % (AUTO) 57.2 % (40.0-70.0); PLATELET COUNT (AUTO) 295 K/uL (130-430); RED BLOOD CELL COUNT(AUTO) 5.52 MIL/uL (4.2-6.2); RED CELL DISTRIBUTION WIDTH 15.9 % (9.0-15.0)
--- NOTE | 2021-06-01 07:12 | NUR ---
PHYSICAL THERAPY CO-SIGN The Physical Therapy Progress Notes documented by Navy Diver have been reviewed. Reviewed/Co-Signed by: Valentin Sena Documentation Done by: LOBO IQBAL PTA Addendum: 06/01/21 at 0712 by Valentin Sena PT Amended: Links added.
[2021-06-01 07:37] LABS: ALANINE AMINOTRANSFERASE 26 U/L (12-78); ALBUMIN 2.1 g/dL (3.4-4.8); ANION GAP 9 (5-15); ASPARTATE AMINOTRANSFERASE 23 U/L (10-37); CALCIUM 8.8 mg/dL (8.4-11.0); CHLORIDE 106 mmol/L (98-107); CREATININE 1.02 mg/dL (0.55-1.30); GLUCOSE 162 mg/dL (70-99); POTASSIUM 3.4 mmol/L (3.5-5.1); SODIUM SERUM 139 mmol/L (136-145); TOTAL BILIRUBIN 0.3 mg/dL (0.0-1.0); UREA NITROGEN, BLOOD 10 mg/dL (8-21)
[2021-06-01 08:00] VITALS: BP_SYST 140
[2021-06-01] MEDS: DOCUSATE SODIUM 250 MG CAPSULE PO SCH ×2 (09:00→20:30)
[2021-06-01] MEDS: ASPIRIN 81 MG TAB.CHEW PO SCH (09:20)
[2021-06-01] MEDS: ATORVASTATIN 20 MG TABLET PO SCH (09:21)
[2021-06-01] MEDS: SPIRONOLACTONE 25 MG TABLET (ALDACTONE) PO SCH (09:22)
[2021-06-01] MEDS: LABETALOL HCL 100 MG TABLET PO SCH ×2 (09:22→20:33)
[2021-06-01] MEDS: hydrALAZINE HCL 25 MG TABLET PO SCH ×3 (09:23→20:32)
[2021-06-01] MEDS: LOSARTAN POTASSIUM 25 MG TABLET PO SCH ×2 (09:23→20:31)
[2021-06-01] MEDS: amLODIPine BESYLATE 5 MG TABLET PO SCH (09:24)
[2021-06-01] MEDS: INSULIN GLARGINE 100 UNITS/ML 10 ML VIAL SUBCUT SCH (09:25)
[2021-06-01] MEDS: cefTRIAXone 1 GM IVPB PREMIX 50 ML IV SCH (12:05)
[2021-06-01 12:35] VITALS: BP_SYST 128
[2021-06-01] MEDS ORDERED: POTASSIUM CHLORIDE 20 MEQ TAB.PRT.SR PO ONE (13:15)
[2021-06-01 16:54] VITALS: BP_SYST 123
--- NOTE | 2021-06-01 17:33 | NUR ---
Nutrition F/U RD reviewed pt's current EMR record including diet Hx, physician notes, nursing notes, pertinent labs/meds/procedures, care trends, and care activity. Admission Dx: Altered mental status, UTI PMH: DM, HTN per physician notes Pt also found w/ early sepsis d/t UTI per physician notes SARS-CoV-2 Ag (Rapid) Negative 05/26 Current Diet Order/Nutrition Support: CCHO, 2 gm Na diet w/ Glucerna BID x4 days Subjective Info: RD rounded to pt's bedside. Pt reported OK appetite, a bit of diarrhea today, but otherwise, doing OK. Bedscale wt taken: 135# -- up 5# since last RD visit 05/27. RD witnessed many snacks at bedside table -- fruits/pastries/etc. Pt reported that family brings foods from home. Per EMR review, fair PO intake noted based on the past 12 meal records. Pt stated she is no longer interested in Glucerna ONS. Pertinent Medications: Reviewed Pertinent Labs: WBC 10 WNL, BUN 10 WNL, CRE 1.02 WNL, BG 162 H, POC BG 162 H, K 3.4 L Height (Feet) 5 feet Height (Inches) 1.00 inches Weight (Pounds) 130 pounds -- stable since 05/27 Weight (Calculated Kilograms) 58.677005 kilograms Patient Weight 58.967 kg Body Mass Index 24.56 kg/m2 Usual Weight 130 lbs %UBW 100 %IBW 124 [place]/Adjusted Body Weight 105#/48 kg Estimated Energy Expenditure (kcals/day) 4178-1825 kcal/day (30-35 kcal/kg Adj IBW d/t sepsis) Estimated Protein Required (g/day) 72-96 gm/day (1.5-2 gm/kg Adj IBW d/t sepsis) Estimated Fluid Required (l/day) 1.5-1.8 L/day (25-30 ml/kg CBW d/t GERIAT maintenance) Problem/Etiology/Signs/Symptoms Increased nutritional needs related to metabolic demands as evidenced by estimated nutritional requirements for sepsis. *seemingly improved Altered nutrition-related labs related to endocrine dysfunction as evidenced by elevated BG and POC BG lab values. *seemingly improved Expected Outcomes/Goals - Monitor appetite and PO intakes w/ goal of pt meeting at least 50% of estimated nutritional needs, labs trending WNL, normal GI function, and skin integrity/wt maintenance Dietitian Recommendations * CCHO, 2 gm Na diet * Encourage increase PO intakes Follow Up Mod Risk: F/U in 3-5 days
--- NOTE | 2021-06-01 17:36 | NUR ---
Dietitian Recommendations * CCHO, 2 gm Na diet * Encourage increase PO intakes LP, RD Please refer to Nutrition F/U for details.
[2021-06-01] MEDS: MONTELUKAST 10 MG TABLET PO SCH (18:14)
--- NOTE | 2021-06-01 19:35 | NUR ---
ROUNDS PATIENT RESTING COMFORTABLY IN BED, NOT IN DISTRESS, VITALS STABLE. DENIES ANY PAIN AT THIS TIME. ASSESSMENT DONE AND DOCUMENTED. SEE FLOWSHEET. NEEDS ATTENDED TO. SAFETY MEASURES IN PLACED. CALL LIGHT PLACED WITHIN REACH.
[2021-06-01 20:00] VITALS: BP_SYST 149
[2021-06-01] MEDS: MELATONIN 3 MG TABLET PO SCH ×2 (20:34→20:42)
[2021-06-02] VITALS: BP_SYST 143
[2021-06-02] MEDS: INSULIN REGULAR, HUMAN 100 UNITS/ML, 10 ML VIAL (humuLIN R) SUBCUT PRN ×2 (06:20→11:33)
--- NOTE | 2021-06-02 06:50 | NUR ---
PHYSICAL THERAPY CO-SIGN The Physical Therapy Progress Notes documented by Insurance Processing Clerk have been reviewed. Reviewed/Co-Signed by: Valentin Sena Documentation Done by: LOBO IQBAL PTA Addendum: 06/02/21 at 0650 by Valentin Sena PT Amended: Links added.
--- NOTE | 2021-06-02 06:55 | NUR ---
CLOSING NOTES PATIENT AWAKE, ACCU CHECK DONE WITH BLOOD SUGAR OF 154. REGULAR INSULIN 2 UNITS GIVEN SQ PER SLIDING SCALE. ALL NEEDS ATTENDED TO. CALL LIGHT PLACED WITHIN REACH.
[2021-06-02 08:00] VITALS: BP_SYST 155
[2021-06-02] MEDS: hydrALAZINE HCL 25 MG TABLET PO SCH (08:26)
[2021-06-02] MEDS: SPIRONOLACTONE 25 MG TABLET (ALDACTONE) PO SCH (08:27)
[2021-06-02] MEDS: amLODIPine BESYLATE 5 MG TABLET PO SCH (08:27)
[2021-06-02] MEDS: DOCUSATE SODIUM 250 MG CAPSULE PO SCH (08:27)
[2021-06-02] MEDS: ATORVASTATIN 20 MG TABLET PO SCH (08:27)
[2021-06-02] MEDS: INSULIN GLARGINE 100 UNITS/ML 10 ML VIAL SUBCUT SCH (08:31)
[2021-06-02] MEDS: ASPIRIN 81 MG TAB.CHEW PO SCH (08:31)
[2021-06-02] MEDS ORDERED: INSU100V9 SUBCUT (10:26)
[2021-06-02] MEDS ORDERED: SPIR25TA PO (10:26)
[2021-06-02] MEDS ORDERED: LABE100T5 PO (10:26)
[2021-06-02] MEDS ORDERED: LIP20 PO (10:26)
[2021-06-02] MEDS ORDERED: HYDR-4038 PO (10:26)
[2021-06-02] MEDS ORDERED: AMLO5TAB4 PO (10:26)
[2021-06-02] MEDS ORDERED: LEVO500T89 PO (10:26)
[2021-06-02] MEDS ORDERED: ASA81 PO (10:26)
[2021-06-02] MEDS ORDERED: LOSA100T3 PO (10:26)
[2021-06-02 11:07] VITALS: BP_SYST 155
[2021-06-02] MEDS: LABETALOL HCL 100 MG TABLET PO SCH (11:21)
[2021-06-02] MEDS: LOSARTAN POTASSIUM 25 MG TABLET PO SCH (11:21)
[2021-06-02] MEDS: cefTRIAXone 1 GM IVPB PREMIX 50 ML IV SCH (11:22)
[2021-06-02 11:38] VITALS: BP_SYST 151
--- NOTE | 2021-06-02 13:00 | NUR ---
0710AM: PATIENT IS RESTING IN BED QUIETLY. NO ADDITIONAL DISTRESS NOTED. BED IN LOW AND LOCK POSITION. CALL LIGHT WITHIN REACH. STABLE CONDITION AT THIS TIME. WILL CONT TO MONITOR. 0800AM: EXPLAINED PLAN OF CARE AND PATIENT VERBALIZED UNDERSTANDING BUT NEED EDUCATION REINFORCEMENT ON DIET DUE TO EPISODE OF HTN AND HIGH BS. WILL CONT TO MONITOR. 1000AM: PATIENT IS RESTING IN BED WATCHING TV. NO ADDITIONAL DISTRESS NOTED. 1133AM: DC INSTRUCTION GIVEN AND EXPLAINED. PATIENT VERBALIZED UNDERSTANDING. INSTRUCTION PATIENT TO PIPE COVERER AND INSULATOR PRESCRIBE MEDICATION AT THE PHARMACY THAT WAS INDICATED IN THE SYSTEM. ER PRECAUTION DISCUSSED. 1135AM: PATIENT'S FAMILY MEMBER (X1) AT THE BEDSIDE TO TAKE HER HOME. PER PATIENT SHE WILL EAT LUNCH HERE FIRST AND GO HOME. 1200PM: PATIENT IS SITTING AT THE SIDE OF THE BED EATING HER LUNCH. WILL CONT TO MONITOR. 1300: IV REMOVED FROM THE LAC. IV CATH INTACT WHEN REMOVED. COVER SITE WITH GAUZE AND SECURE WITH TAPE. ALL PERSONAL BELONGINGS GIVEN TO PATIENT AND SHE DENIES MISSING ITEMS. WHEELED OUT PATIENT IN A STABLE CONDITION. NO ADDITIONAL DISTRESS NOTED. ACCOMPANIED BY PRIMARY NURSE AND FAMILY MEMBER (X1).
--- NOTE | 2021-06-06 07:42 | NUR ---
PHYSICAL THERAPY CO-SIGN The Physical Therapy Progress Notes documented by Nailer Machine have been reviewed. Reviewed/Co-Signed by: Valentin Sena Documentation Done by: LOBO IQBAL PTA Addendum: 06/06/21 at 0742 by Valentin Sena PT Amended: Links added.
== END 2021-06-02 13:00 | disposition home or self-care (01) | DRG 871 ==
LOC: SED 08:28 → STU 12:14 → SMU 05-31 17:16
PROVIDERS: ADMIT Internal Medicine Hospice and Palliative Medicine; ATTEND Internal Medicine Hospice and Palliative Medicine
DX: A41.51 Sepsis due to Escherichia coli [E. coli] (principal); G93.41 Metabolic encephalopathy; N17.9 Acute kidney failure, unspecified; N39.0 Urinary tract infection, site not specified; E46 Unspecified protein-calorie malnutrition; D64.9 Anemia, unspecified; G47.00 Insomnia, unspecified; E11.65 Type 2 diabetes mellitus with hyperglycemia; E87.6 Hypokalemia; R74.01 Elevation of levels of liver transaminase levels; E88.09 Other disorders of plasma-protein metabolism, not elsewhere classified; J44.9 Chronic obstructive pulmonary disease, unspecified; F03.90 Unspecified dementia, unspecified severity, without behavioral disturbance, psychotic disturbance, mood disturbance, and anxiety; Z20.822 Contact with and (suspected) exposure to COVID-19; I12.9 Hypertensive chronic kidney disease with stage 1 through stage 4 chronic kidney disease, or unspecified chronic kidney disease; E11.22 Type 2 diabetes mellitus with diabetic chronic kidney disease; N18.9 Chronic kidney disease, unspecified; Z79.82 Long term (current) use of aspirin; Z79.84 Long term (current) use of oral hypoglycemic drugs; Z79.899 Other long term (current) drug therapy; Z79.4 Long term (current) use of insulin; Z82.49 Family history of ischemic heart disease and other diseases of the circulatory system; Z68.24 Body mass index [BMI] 24.0-24.9, adult
CPT/HCPCS: 36415; 70450-TC; 71045; 76376; 76770; 80053; 80307; 81000; 82009; 82140; 82550; 82962; 83036; 83540; 83550; 83605; 83735; 83880; 84100; 84443; 84484; 85007; 85025; 85027; 85610-TC; 85651-TC; 85730-TC; 86140; 87040-TC; 87086; 93005; 93306; 96361; 96365; 96375; 97110-GP; 97112-GP; 97116-GP; 97163-GP; 97530-GP; 99285; G0378; G0480; G0481; G0482; J0360; J0696; J1815; J2060; J2405; J2543

== ENCOUNTER 2021-07-16 20:43 | Inpatient (IN) | payer BC, MEDICAID, SELFPAY ==
[~2021-07-16] VITALS: Ht 154.9 cm; Wt 49.4 kg
[~2021-07-16 20:43] MED LIST: ALPR0.25 PO; AMLO5TAB4 PO; ASA81 PO; DOCU250C14 PO; HYDR-4038 PO; INSU100V9 SUBCUT; LABE100T5 PO; LEVO500T90 PO; LIP20 PO; LOSA100T3 PO; MELA1TAB29 PO; METF-518 PO; MONT-40 PO; MONT10TA22; SITA100T11 PO; SPIR25TA PO
[2021-07-16 20:50] VITALS: BP_SYST 182
[2021-07-16] MEDS ORDERED: ONDANSETRON HCL 4 MG/2 ML VIAL IVP ONE (22:00)
[2021-07-16] MEDS ORDERED: MAG HYDROX/AL HYDROX/SIMETH 30 ML, DICYCLOMINE HCL 20 MG, LIDOCAINE VISCOUS 2% 15ML (PO... PO ONE ×3 (22:00)
[2021-07-16] MEDS ORDERED: NACL 0.9% 1,000 ML IV ONE (22:00)
--- NOTE | 2021-07-16 22:31 | NUR ---
Placed in room 8 . Placed on ekg monitor, blood pressure machine and pulse oximeter. To gown for exam. Side rails up. Report given to Kristin LESTER.
--- NOTE | 2021-07-16 22:40 | NUR ---
Dr Mueller evaluating patient at bedside
--- NOTE | 2021-07-16 22:45 | NUR ---
Pt brought by ambulance, A&Ox 3, pt presents to ER with weakness and upper abdominal pain, skin pink and warm, cap refill <3, VSS, respirations even and unlabored, will cont to monitor.
[2021-07-16 22:49] LABS: BASOPHILS # (AUTO) 0.1 K/uL (0.0-0.2); BASOPHILS % (AUTO) 0.5 % (0.0-2.0); HEMATOCRIT 39.5 % (36-48); HEMOGLOBIN 12.5 g/dL (12.0-16.0); LYMPHOCYTES # (AUTO) 2.3 K/uL (1.0-5.5); LYMPHOCYTES % (AUTO) 22.6 % (20.5-51.5); MEAN CORPUSCULAR HEMOGLOBIN 21 pg (27-31); MEAN CORPUSCULAR HGB CONC 32 % (32-36); MEAN CORPUSCULAR VOLUME 65 fL (79.0-98.0); MONOCYTES # (AUTO) 0.9 K/uL (0.0-1.0); MONOCYTES % (AUTO) 9.3 % (1.7-9.3); NEUTROPHILS # (AUTO) 6.9 K/uL (1.8-7.7); NEUTROPHILS % (AUTO) 67.6 % (40.0-70.0); PLATELET COUNT (AUTO) 294 K/uL (130-430); RED BLOOD CELL COUNT(AUTO) 6.05 MIL/uL (4.2-6.2); RED CELL DISTRIBUTION WIDTH 16.5 % (9.0-15.0); WHITE BLOOD COUNT (AUTO) 10.2 K/uL (4.8-10.8)
[2021-07-16 23:16] LABS: ALANINE AMINOTRANSFERASE 24 U/L (12-78); ALBUMIN 2.6 g/dL (3.4-4.8); ANION GAP 12 (5-15); ASPARTATE AMINOTRANSFERASE 30 U/L (10-37); CALCIUM 9.1 mg/dL (8.4-11.0); CHLORIDE 98 mmol/L (98-107); CREATININE 1.28 mg/dL (0.55-1.30); GLUCOSE 189 mg/dL (70-99); LIPASE 171 U/L (73-393); POTASSIUM 4.7 mmol/L (3.5-5.1); SODIUM SERUM 132 mmol/L (136-145); TOTAL BILIRUBIN 0.4 mg/dL (0.0-1.0); UREA NITROGEN, BLOOD 36 mg/dL (8-21)
[2021-07-17 01:21] LABS: BILIRUBIN,URINE NEGATIVE (NEGATIVE); CLARITY/URINE CLEAR (CLEAR); COLOR,URINE YELLOW (YELLOW); GLUCOSE,URINE NEGATIVE (NEGATIVE); KETONES,URINE NEGATIVE (NEGATIVE); LEUKOCYTE ESTERASE ,URINE NEGATIVE (NEGATIVE); NITRITE, URINE NEGATIVE (NEGATIVE); PROTEIN URINE 3+ (NEGATIVE); UROBILINOGEN,URINE 0.2 (0.2-1.0)
[2021-07-17 01:22] LABS: BLOOD, URINE TRACE (NEGATIVE)
[2021-07-17 01:41] LABS: BACTERIA,URINE MODERATE /HPF (None Seen); MUCUS,URINE None Seen /LPF (None Seen); YEAST,URINE Many /HPF (None Seen)
[2021-07-17] MEDS ORDERED: HYDR-4038 PO (02:06)
[2021-07-17] MEDS ORDERED: ALBU8.5H8 INH (02:06)
[2021-07-17] MEDS ORDERED: TRAZ-250 PO (02:06)
[2021-07-17] MEDS ORDERED: INSU100V9 SQ (02:06)
[2021-07-17] MEDS ORDERED: LIP20 PO (02:06)
--- NOTE | 2021-07-17 02:13 | NUR ---
Medication reconciliation completed with information provided by patient . Any prior medication reconciliation on file was reviewed and corrected.
[2021-07-17] MEDS ORDERED: D5/0.45 NS 1,000 ML IV SCH (02:15)
--- NOTE | 2021-07-17 03:15 | NUR ---
Pt A&Ox3 , follows commands, VSS, respirations even and unlabored
--- NOTE | 2021-07-17 06:10 | NUR ---
Pt resting in bed, VSS, respirations even and unlabored, cap refill <3.
[2021-07-17] MEDS ORDERED: ALBUTEROL MDI INHALATION 8 GM INH INH PRN (06:45)
[2021-07-17] MEDS ORDERED: ONDANSETRON HCL 4 MG/2 ML VIAL IVP PRN (06:45)
--- NOTE | 2021-07-17 07:40 | NUR ---
Report given to Sherry LESTER
--- NOTE | 2021-07-17 08:00 | NUR ---
PT TEMP 99.5, PT ASSESSED FOR DISCOMFORTS, SHOOK HER HEAD, OFFERED HER A BEDPAN, AND VOIDED ADEQUATE AMOUNT.
[2021-07-17] MEDS: D5/0.45 NS 1,000 ML IV SCH ×2 (10:05→18:36)
[2021-07-17] MEDS: AZITHROMYCIN 500 MG in NS 250 ML IV SCH (10:06)
[2021-07-17] MEDS: SPIRONOLACTONE 25 MG TABLET (ALDACTONE) PO SCH (10:40)
[2021-07-17] MEDS: ASPIRIN 81 MG TAB.CHEW PO SCH (10:40)
[2021-07-17] MEDS: INSULIN GLARGINE 100 UNITS/ML 10 ML VIAL SQ SCH (10:40)
[2021-07-17] MEDS: amLODIPine BESYLATE 5 MG TABLET PO SCH (10:40)
--- NOTE | 2021-07-17 11:00 | NUR ---
PT'S DAUGHTER CALLED, UPDATE GIVEN ON CURRENT STATUS.
[2021-07-17] MEDS: cefTRIAXone 1 GM in D5W 50 ML IV SCH (12:11)
[2021-07-17] MEDS: LABETALOL HCL 100 MG TABLET PO SCH ×2 (12:12→22:16)
[2021-07-17] MEDS: ATORVASTATIN 20 MG TABLET PO SCH (12:12)
[2021-07-17] MEDS: DOCUSATE SODIUM 250 MG CAPSULE PO SCH ×2 (12:13→22:16)
[2021-07-17] MEDS: hydrALAZINE HCL 25 MG TABLET PO SCH ×2 (12:14→22:15)
[2021-07-17] MEDS: LOSARTAN POTASSIUM 50 MG TABLET (COZAAR) PO SCH (12:15)
[2021-07-17] MEDS: traZODone HCL 50 MG TABLET (DESYREL) PO SCH (12:16)
[2021-07-17] MEDS: INSULIN REGULAR, HUMAN 100 UNITS/ML, 10 ML VIAL (humuLIN R) SUBCUT PRN ×2 (12:27→18:26)
[2021-07-17] MEDS ORDERED: INSULIN REGULAR, HUMAN 10 UNITS/0.1 ML INJ ONE (12:28)
--- NOTE | 2021-07-17 15:47 | NUR ---
Discharge appointments and vendors arranged by [facility] Geochemist. Dr. Jane [facility] will call with date and time waiting for agency to be assigned HH RN for med rec Agency will call and schedule visit. Please call Patient Support Center [phone] for worsening symptoms or trouble getting your medicine. For care needs when provider office is closed, contact Ashley [facility] at [phone] or [facility] [place] [phone].
[2021-07-17] MEDS: MONTELUKAST 10 MG TABLET PO SCH (18:10)
--- NOTE | 2021-07-17 18:30 | NUR ---
PT ASKED TO USE THE BATHROOM, SHE SAID SO SHE CAN CHANGE HER GOWN. LIFTED HER BLANKET UP, PT ALREADY HAD MOVED HER BOWELS, LOOSE STOOL, GOOD PERINEAL CARE DONE.
--- NOTE | 2021-07-17 19:25 | NUR ---
ASSUMED CARE FOF PT FROM SONY LESTER. YIFAN TRANSFER SOON
--- NOTE | 2021-07-17 20:13 | NUR ---
Patient will be admitted to care of MD Navarro. Admitted to Med/surg unit. Will go to room 106A. Belongings list completed. Complete and up to date summary report printed. SBAR report to be given at bedside with opportunity for questions. Report called and given to Tommie LESTER
[2021-07-18 01:44] VITALS: BP_SYST 124
[2021-07-18 04:00] VITALS: BP_SYST 124
--- NOTE | 2021-07-18 05:34 | NUR ---
CONSULTATION PAGED/CALLED Reason for Consultation: COVID Person Who was Notified: FLOR Consulting Physician: Smith ALVARADO Chart Writer Specialty: Ordering Physician: Charly LOZADA
--- NOTE | 2021-07-18 05:41 | NUR ---
CONSULTATION PAGED/CALLED Reason for Consultation: POSSIBLE SYNCOPE Person Who was Notified: FLOR Consulting Physician: HUBER Sand Mixer Specialty: Ordering Physician: Chong LOZADA
[2021-07-18 07:41] LABS: ANION GAP 12 (5-15); CALCIUM 8.4 mg/dL (8.4-11.0); CHLORIDE 104 mmol/L (98-107); CREATININE 1.22 mg/dL (0.55-1.30); GLUCOSE 166 mg/dL (70-99); PHOSPHORUS 2.4 mg/dL (2.7-4.5); POTASSIUM 4.1 mmol/L (3.5-5.1); SODIUM SERUM 134 mmol/L (136-145); UREA NITROGEN, BLOOD 29 mg/dL (8-21)
[2021-07-18 08:40] LABS: BASOPHILS % (AUTO) 0.4 % (0.0-2.0); EOSINOPHILS % (AUTO) 0.1 % (0.0-4.0); HEMATOCRIT 34.7 % (36-48); HEMOGLOBIN 10.9 g/dL (12.0-16.0); LYMPHOCYTES # (AUTO) 1.8 K/uL (1.0-5.5); LYMPHOCYTES % (AUTO) 17.9 % (20.5-51.5); MEAN CORPUSCULAR HEMOGLOBIN 21 pg (27-31); MEAN CORPUSCULAR HGB CONC 31 % (32-36); MONOCYTES # (AUTO) 0.7 K/uL (0.0-1.0); MONOCYTES % (AUTO) 6.5 % (1.7-9.3); NEUTROPHILS # (AUTO) 7.6 K/uL (1.8-7.7); NEUTROPHILS % (AUTO) 75.1 % (40.0-70.0); PLATELET COUNT (AUTO) 261 K/uL (130-430); RED BLOOD CELL COUNT(AUTO) 5.25 MIL/uL (4.2-6.2); RED CELL DISTRIBUTION WIDTH 16.8 % (9.0-15.0); WHITE BLOOD COUNT (AUTO) 10.2 K/uL (4.8-10.8)
[2021-07-18] MEDS ORDERED: DEXAMETHASONE SOD PHOSPHATE 10 MG/ML VIAL IVP ONE (09:15)
[2021-07-18] MEDS: INSULIN GLARGINE 100 UNITS/ML 10 ML VIAL SQ SCH (09:39)
[2021-07-18 09:51] VITALS: BP_SYST 138
[2021-07-18] MEDS: amLODIPine BESYLATE 5 MG TABLET PO SCH (09:53)
[2021-07-18] MEDS: hydrALAZINE HCL 25 MG TABLET PO SCH ×2 (09:54→20:35)
[2021-07-18] MEDS: ATORVASTATIN 20 MG TABLET PO SCH (09:54)
[2021-07-18] MEDS: DOCUSATE SODIUM 250 MG CAPSULE PO SCH ×2 (09:55→20:35)
[2021-07-18] MEDS: LABETALOL HCL 100 MG TABLET PO SCH ×2 (09:55→20:36)
[2021-07-18] MEDS: traZODone HCL 50 MG TABLET (DESYREL) PO SCH (09:55)
[2021-07-18] MEDS: LOSARTAN POTASSIUM 50 MG TABLET (COZAAR) PO SCH (09:55)
[2021-07-18] MEDS: ASPIRIN 81 MG TAB.CHEW PO SCH (09:56)
[2021-07-18] MEDS: SPIRONOLACTONE 25 MG TABLET (ALDACTONE) PO SCH (09:56)
[2021-07-18] MEDS: AZITHROMYCIN 500 MG in NS 250 ML IV SCH (09:58)
[2021-07-18] MEDS: cefTRIAXone 1 GM in D5W 50 ML IV SCH (09:58)
[2021-07-18] MEDS: D5/0.45 NS 1,000 ML IV SCH (09:59)
[2021-07-18 10:16] LABS: MEAN CORPUSCULAR VOLUME 66 fL (79.0-98.0)
[2021-07-18 12:00] VITALS: BP_SYST 104
[2021-07-18] MEDS: INSULIN REGULAR, HUMAN 100 UNITS/ML, 10 ML VIAL (humuLIN R) SUBCUT PRN ×3 (12:05→21:27)
[2021-07-18 17:46] VITALS: BP_SYST 149
[2021-07-18] MEDS: MONTELUKAST 10 MG TABLET PO SCH (17:53)
--- NOTE | 2021-07-18 18:33 | NUR ---
Outcome Summary A/Ox4, weak, slept majority of day. VSS. Afebrile. Denies pain or discomfort. Sating 90-92% on 3-4L nc, HEART, denies SOB. Medsurg. Poor PO intake, BG monitored ACHS. Voiding via bsc. Skin intact, independent in bed. Up with assist to bsc, very unsteady/weak. IVFs + IV abx continued, PIV dressing c/d/i. Isolation precautions maintained. POC d/w daughter. All needs met, safety and comfort measures maintained, call light within reach. NR, RN.
[2021-07-18 20:00] VITALS: BP_SYST 113
--- NOTE | 2021-07-18 22:00 | NUR ---
pt awake,alert & oriented x 4. not in any acute distress. resp even & unlabored. Afebrile. denies pain. saturating 94% @ 4L/min via nc. HS accucheck performed, pt's BS = 425mg/dl, administered 12units of humulin R per sliding scale as ordered. left msg w/ Dr. Tam. rechecked BS 30mins later after insulin administration, BS= 404mg/dl. pt is awake,alert & oriented. Called & informed Dr. Lupe MD made aware w/ new order to change d5 0.45% NS to 1/2 NS @ 70cc/hr noted & carried out. Will con't to monitor pt.
[2021-07-18] MEDS: 0.45% NACL 1,000 ML IV SCH (22:59)
[2021-07-19] VITALS: BP_SYST 122
--- NOTE | 2021-07-19 02:11 | NUR ---
CONSULTATION PAGED/CALLED Reason for Consultation: COVID Person Who was Notified: LAURA Consulting Physician: JAMES Senior Lead Developer Specialty: Ordering Physician: BEA
[2021-07-19 04:00] VITALS: BP_SYST 130
[2021-07-19] MEDS: INSULIN REGULAR, HUMAN 100 UNITS/ML, 10 ML VIAL (humuLIN R) SUBCUT PRN ×3 (06:24→21:40)
--- NOTE | 2021-07-19 06:50 | NUR ---
pt awake,alert & oriented x 4. not in any acute distress. resp even & unlabored. Afebrile. denies pain. saturating 94% @ 4L/min via nc. HS accucheck performed, pt's BS = 270mg/dl, administered humulin R per sliding scale as ordered. b & b continent w/ bedside commode. proper tamara care provided. gown & linen changed. kept clean and comfortable. endorsed accordingly to daysbrandon RN.
[2021-07-19 07:09] LABS: BASOPHILS % (AUTO) 0.2 % (0.0-2.0); HEMATOCRIT 35.5 % (36-48); HEMOGLOBIN 11.2 g/dL (12.0-16.0); LYMPHOCYTES # (AUTO) 0.8 K/uL (1.0-5.5); LYMPHOCYTES % (AUTO) 10.9 % (20.5-51.5); MEAN CORPUSCULAR HEMOGLOBIN 21 pg (27-31); MEAN CORPUSCULAR HGB CONC 32 % (32-36); MEAN CORPUSCULAR VOLUME 66 fL (79.0-98.0); MONOCYTES # (AUTO) 0.5 K/uL (0.0-1.0); MONOCYTES % (AUTO) 6.8 % (1.7-9.3); NEUTROPHILS # (AUTO) 5.8 K/uL (1.8-7.7); NEUTROPHILS % (AUTO) 82.1 % (40.0-70.0); PLATELET COUNT (AUTO) 296 K/uL (130-430); RED BLOOD CELL COUNT(AUTO) 5.41 MIL/uL (4.2-6.2); RED CELL DISTRIBUTION WIDTH 16.9 % (9.0-15.0)
[2021-07-19 08:00] VITALS: BP_SYST 135
[2021-07-19 08:25] LABS: ALANINE AMINOTRANSFERASE 17 U/L (12-78); ANION GAP 12 (5-15); ASPARTATE AMINOTRANSFERASE 30 U/L (10-37); CALCIUM 8.6 mg/dL (8.4-11.0); CHLORIDE 104 mmol/L (98-107); CREATININE 1.62 mg/dL (0.55-1.30); GLUCOSE 254 mg/dL (70-99); POTASSIUM 4.4 mmol/L (3.5-5.1); SODIUM SERUM 134 mmol/L (136-145); TOTAL BILIRUBIN 0.2 mg/dL (0.0-1.0); UREA NITROGEN, BLOOD 30 mg/dL (8-21)
[2021-07-19] MEDS ORDERED: DEXAMETHASONE SOD PHOSPHATE 10 MG/ML VIAL IVP SCH ×2 (09:00)
[2021-07-19] MEDS: INSULIN GLARGINE 100 UNITS/ML 10 ML VIAL SQ SCH (10:13)
[2021-07-19] MEDS: amLODIPine BESYLATE 5 MG TABLET PO SCH (10:15)
[2021-07-19] MEDS: DOCUSATE SODIUM 250 MG CAPSULE PO SCH ×2 (10:15→21:04)
[2021-07-19] MEDS: SPIRONOLACTONE 25 MG TABLET (ALDACTONE) PO SCH (10:16)
[2021-07-19] MEDS: ATORVASTATIN 20 MG TABLET PO SCH (10:17)
[2021-07-19] MEDS: LABETALOL HCL 100 MG TABLET PO SCH ×2 (10:17→21:06)
--- NOTE | 2021-07-19 10:17 | NUR ---
Nutrition Update : Abel Scale: 18 noted Pt admitted for Generalized weakness, COVID. Diet: CCHO. BMI: 20.6 kg/m2 RD to follow per nutrition care standards.
[2021-07-19] MEDS: hydrALAZINE HCL 25 MG TABLET PO SCH ×2 (10:18→21:07)
[2021-07-19] MEDS: traZODone HCL 50 MG TABLET (DESYREL) PO SCH (10:18)
[2021-07-19] MEDS: ASPIRIN 81 MG TAB.CHEW PO SCH (10:18)
[2021-07-19] MEDS: LOSARTAN POTASSIUM 50 MG TABLET (COZAAR) PO SCH (10:18)
[2021-07-19] MEDS: AZITHROMYCIN 500 MG in NS 250 ML IV SCH (10:19)
[2021-07-19] MEDS: cefTRIAXone 1 GM in D5W 50 ML IV SCH (10:19)
[2021-07-19] MEDS ORDERED: CHOLECALCIFEROL (VITAMIN D3) 5,000 UNIT TABLET PO ONE (13:00)
[2021-07-19] MEDS ORDERED: ENOXAPARIN SODIUM 40 MG/0.4 ML SYRINGE SUBCUT ONE (13:00)
[2021-07-19 16:00] VITALS: BP_SYST 137
[2021-07-19] MEDS: MONTELUKAST 10 MG TABLET PO SCH (17:29)
[2021-07-19] MEDS: FLUCONAZOLE 100 mg/ NS 50 ML IV SCH (17:57)
[2021-07-19] MEDS: 0.45% NACL 1,000 ML IV SCH (17:57)
--- NOTE | 2021-07-19 18:52 | NUR ---
Outcome Summary Pt resting comfortably in bed, in no acute distress. A/Ox4, forgetful. VSS. Afebrile. Denies pain or discomfort. Sating >93% on 4L nc, HEART, breathing unlabored. Tolerating diet, BG monitored ACHS. Voiding adequately via bsc. Encouraged to self turn q2. Ambulated with PT, tolerated well. IVFs and IV abx continued. All needs met, safety and comfort measures maintained, call light within reach. NR, RN
[2021-07-19 20:00] VITALS: BP_SYST 125
[2021-07-19] MEDS: MELATONIN 3 MG TABLET PO SCH (21:00)
[2021-07-19] MEDS: ASCORBIC ACID 500 MG TABLET PO SCH (21:05)
[2021-07-20] VITALS: BP_SYST 128
[2021-07-20] MEDS: 0.45% NACL 1,000 ML IV SCH ×2 (03:06→09:30)
[2021-07-20 04:00] VITALS: BP_SYST 128
[2021-07-20] MEDS: INSULIN REGULAR, HUMAN 100 UNITS/ML, 10 ML VIAL (humuLIN R) SUBCUT PRN ×4 (06:36→22:12)
[2021-07-20 08:00] VITALS: BP_SYST 152
--- NOTE | 2021-07-20 08:02 | NUR ---
PHYSICAL THERAPY CO-SIGN The Physical Therapy Progress Notes documented by Ragman have been reviewed. Reviewed/Co-Signed by: Valentin Sena Documentation Done by: JOSE RODRIGUEZ PTA Addendum: 07/20/21 at 0803 by Valentin Sena PT Amended: Links added.
[2021-07-20] MEDS: AZITHROMYCIN 500 MG in NS 250 ML IV SCH (08:35)
[2021-07-20] MEDS: cefTRIAXone 1 GM in D5W 50 ML IV SCH (08:35)
[2021-07-20] MEDS: DOCUSATE SODIUM 250 MG CAPSULE PO SCH ×2 (08:36→21:58)
[2021-07-20] MEDS: SPIRONOLACTONE 25 MG TABLET (ALDACTONE) PO SCH (08:36)
[2021-07-20] MEDS: ASPIRIN 81 MG TAB.CHEW PO SCH (08:36)
[2021-07-20] MEDS: CHOLECALCIFEROL (VITAMIN D3) 5,000 UNIT TABLET PO SCH (08:37)
[2021-07-20] MEDS: ASCORBIC ACID 500 MG TABLET PO SCH ×2 (08:37→21:59)
[2021-07-20] MEDS: traZODone HCL 50 MG TABLET (DESYREL) PO SCH (08:37)
[2021-07-20] MEDS: ATORVASTATIN 20 MG TABLET PO SCH (08:37)
[2021-07-20] MEDS: LOSARTAN POTASSIUM 50 MG TABLET (COZAAR) PO SCH (08:37)
[2021-07-20] MEDS: hydrALAZINE HCL 25 MG TABLET PO SCH ×2 (08:38→22:00)
[2021-07-20] MEDS: amLODIPine BESYLATE 5 MG TABLET PO SCH (08:38)
[2021-07-20] MEDS: LABETALOL HCL 100 MG TABLET PO SCH ×2 (08:38→21:59)
[2021-07-20] MEDS: INSULIN GLARGINE 100 UNITS/ML 10 ML VIAL SQ SCH (08:39)
[2021-07-20] MEDS: DEXAMETHASONE SOD PHOSPHATE 10 MG/ML VIAL IVP SCH (08:39)
[2021-07-20] MEDS: ENOXAPARIN SODIUM 40 MG/0.4 ML SYRINGE SUBCUT SCH (08:40)
[2021-07-20] MEDS: FLUCONAZOLE 100 mg/ NS 50 ML IV SCH (14:57)
[2021-07-20] MEDS ORDERED: FLUCONAZOLE 100 mg/ NS 50 ML IV SCH (15:00)
[2021-07-20 16:00] VITALS: BP_SYST 117
[2021-07-20] MEDS: MONTELUKAST 10 MG TABLET PO SCH (17:51)
[2021-07-20 20:00] VITALS: BP_SYST 154
[2021-07-20] MEDS: MELATONIN 3 MG TABLET PO SCH (22:13)
[2021-07-21] VITALS (7 sets, daily range): BP systolic 122–155
[2021-07-21] MEDS: INSULIN REGULAR, HUMAN 100 UNITS/ML, 10 ML VIAL (humuLIN R) SUBCUT PRN ×4 (06:14→23:59)
--- NOTE | 2021-07-21 07:30 | NUR ---
Assumed care of pt. Pt is in bed resting with no s/s of distress. Provided breakfast to pt. Pt is A&Ox4. VSS. O2 98% RA. Ambulatory with steady gait. Bedside commode available for pt at bedside. Fresh water given. Room clear of clutter. Skin intact. IV intact with no infiltration noted. Pt has no c/o. Bed in lowest position and call light within reach.
--- NOTE | 2021-07-21 07:31 | NUR ---
PHYSICAL THERAPY CO-SIGN The Physical Therapy Progress Notes documented by Scaffolding Helper have been reviewed. Reviewed/Co-Signed by: Valentin Sena Documentation Done by: JOSE RODRIGUEZ PTA Addendum: 07/21/21 at 0732 by Valentin Sena PT Amended: Links added.
--- NOTE | 2021-07-21 07:37 | NUR ---
Received pt up in bed in stable cond. Verbally responsive and able to make needs known. No signs of distress. Breathing adequately on RA. Denies any pain/discomfort at this time. Call light within reach. Addendum: 07/21/21 at 0739 by Sixteen mixed livestock farmer ENTRY DATE/TIME 07/20 @ 1999
--- NOTE | 2021-07-21 08:30 | NUR ---
Breakfast tray removed from room. Pt has no c/o. IV NS 0.45% running at 70ml/hr.
[2021-07-21] MEDS: cefTRIAXone 1 GM in D5W 50 ML IV SCH (08:56)
[2021-07-21] MEDS: 0.45% NACL 1,000 ML IV SCH (08:56)
[2021-07-21] MEDS: DEXAMETHASONE SOD PHOSPHATE 10 MG/ML VIAL IVP SCH (08:57)
[2021-07-21] MEDS: ATORVASTATIN 20 MG TABLET PO SCH (09:02)
[2021-07-21] MEDS: hydrALAZINE HCL 25 MG TABLET PO SCH ×2 (09:02→23:55)
[2021-07-21] MEDS: LABETALOL HCL 100 MG TABLET PO SCH ×2 (09:02→23:56)
[2021-07-21] MEDS: traZODone HCL 50 MG TABLET (DESYREL) PO SCH (09:03)
[2021-07-21] MEDS: ASPIRIN 81 MG TAB.CHEW PO SCH (09:03)
[2021-07-21] MEDS: LOSARTAN POTASSIUM 50 MG TABLET (COZAAR) PO SCH (09:03)
[2021-07-21] MEDS: ASCORBIC ACID 500 MG TABLET PO SCH ×2 (09:04→23:56)
[2021-07-21] MEDS: SPIRONOLACTONE 25 MG TABLET (ALDACTONE) PO SCH (09:04)
[2021-07-21] MEDS: amLODIPine BESYLATE 5 MG TABLET PO SCH (09:04)
[2021-07-21] MEDS: ENOXAPARIN SODIUM 40 MG/0.4 ML SYRINGE SUBCUT SCH (09:13)
[2021-07-21] MEDS: INSULIN GLARGINE 100 UNITS/ML 10 ML VIAL SQ SCH (09:14)
[2021-07-21] MEDS: DOCUSATE SODIUM 250 MG CAPSULE PO SCH ×2 (09:15→23:55)
[2021-07-21] MEDS: AZITHROMYCIN 500 MG in NS 250 ML IV SCH (09:15)
[2021-07-21] MEDS: CHOLECALCIFEROL (VITAMIN D3) 5,000 UNIT TABLET PO SCH (10:22)
--- NOTE | 2021-07-21 10:47 | NUR ---
All prescribed medications have been given at this time. Pt has no c/o. Pt did refuse lab technicians to draw blood twice. Dr. Tam aware of pt's condition and he put an order to start the discharge planning process.
--- NOTE | 2021-07-21 12:44 | NUR ---
Pt in bed resting with no s/s of distress. VSS. A&OX$. skin intact. IV intact. Accucheck done and blood sugar results were 220 so 4 units of regular insulin was given subq LLQ. Pt has no c/o. Lunch tray served and is at bedside.
[2021-07-21] MEDS: FLUCONAZOLE 100 mg/ NS 50 ML IV SCH (14:54)
[2021-07-21] MEDS: MONTELUKAST 10 MG TABLET PO SCH (17:32)
[2021-07-21] MEDS: MELATONIN 3 MG TABLET PO SCH (23:55)
[2021-07-22] VITALS: BP_SYST 135
[2021-07-22] MEDS: 0.45% NACL 1,000 ML IV SCH ×3 (00:02→22:24)
[2021-07-22] MEDS: INSULIN REGULAR, HUMAN 100 UNITS/ML, 10 ML VIAL (humuLIN R) SUBCUT PRN ×4 (06:39→22:22)
[2021-07-22 08:00] VITALS: BP_SYST 156
--- NOTE | 2021-07-22 08:00 | NUR ---
Initial notes awake and oriented, afebrile, on room air O2 sat at 95%. denies any pain or shortness of breath at rest. Uses bedside commode. IVF infusing well. enc to call for help as needed. verbalize understanding. Call light within reach.
[2021-07-22] MEDS ORDERED: DEC1 PO (09:21)
[2021-07-22] MEDS ORDERED: INSU100V9 SQ (09:22)
[2021-07-22] MEDS: cefTRIAXone 1 GM in D5W 50 ML IV SCH (09:36)
[2021-07-22] MEDS: CHOLECALCIFEROL (VITAMIN D3) 5,000 UNIT TABLET PO SCH (09:36)
[2021-07-22] MEDS: ASCORBIC ACID 500 MG TABLET PO SCH ×2 (09:37→22:14)
[2021-07-22] MEDS: amLODIPine BESYLATE 5 MG TABLET PO SCH (09:37)
[2021-07-22] MEDS: LABETALOL HCL 100 MG TABLET PO SCH ×2 (09:37→22:16)
[2021-07-22] MEDS: LOSARTAN POTASSIUM 50 MG TABLET (COZAAR) PO SCH (09:38)
[2021-07-22] MEDS: ASPIRIN 81 MG TAB.CHEW PO SCH (09:38)
[2021-07-22] MEDS: traZODone HCL 50 MG TABLET (DESYREL) PO SCH (09:38)
[2021-07-22] MEDS: hydrALAZINE HCL 25 MG TABLET PO SCH ×2 (09:38→22:15)
[2021-07-22] MEDS: SPIRONOLACTONE 25 MG TABLET (ALDACTONE) PO SCH (09:39)
[2021-07-22] MEDS: DEXAMETHASONE SOD PHOSPHATE 10 MG/ML VIAL IVP SCH (09:39)
[2021-07-22] MEDS: ATORVASTATIN 20 MG TABLET PO SCH (09:39)
[2021-07-22] MEDS: DOCUSATE SODIUM 250 MG CAPSULE PO SCH ×2 (09:40→22:15)
[2021-07-22] MEDS: INSULIN GLARGINE 100 UNITS/ML 10 ML VIAL SQ SCH (09:44)
[2021-07-22] MEDS: ENOXAPARIN SODIUM 40 MG/0.4 ML SYRINGE SUBCUT SCH (09:45)
[2021-07-22 12:00] VITALS: BP_SYST 145
[2021-07-22] MEDS: FLUCONAZOLE 100 mg/ NS 50 ML IV SCH (14:53)
--- NOTE | 2021-07-22 15:15 | NUR ---
Notes resting in bed, denies any pain or discomfort.
[2021-07-22 16:00] VITALS: BP_SYST 148
[2021-07-22] MEDS: MONTELUKAST 10 MG TABLET PO SCH (17:24)
[2021-07-22 20:35] VITALS: BP_SYST 158
--- NOTE | 2021-07-22 20:35 | NUR ---
Opening note Received patient awake, resting in bed, no distress. Nonlabored breathing on room air. I informed her that the Doctor made rounds and said she is discharged to go home. She said she does not want to go home at this time, because she does not want to take covid home and give it to her son. She said she wants to go to a hotel and needs to find a bed and is not going to leave at night; she will look tomorrow. Bed is locked in lowest position, side rails up and bed alarm on. Updated board and call light s/in reach.
[2021-07-22] MEDS: MELATONIN 3 MG TABLET PO SCH (22:28)
[2021-07-23 00:45] VITALS: BP_SYST 144
[2021-07-23] MEDS: INSULIN REGULAR, HUMAN 100 UNITS/ML, 10 ML VIAL (humuLIN R) SUBCUT PRN (07:50)
[2021-07-23 08:00] VITALS: BP_SYST 152
[2021-07-23] MEDS: DEXAMETHASONE SOD PHOSPHATE 10 MG/ML VIAL IVP SCH (10:08)
[2021-07-23] MEDS: cefTRIAXone 1 GM in D5W 50 ML IV SCH (10:08)
[2021-07-23] MEDS: hydrALAZINE HCL 25 MG TABLET PO SCH (10:09)
[2021-07-23] MEDS: traZODone HCL 50 MG TABLET (DESYREL) PO SCH (10:09)
[2021-07-23] MEDS: LOSARTAN POTASSIUM 50 MG TABLET (COZAAR) PO SCH (10:09)
[2021-07-23] MEDS: ATORVASTATIN 20 MG TABLET PO SCH (10:09)
[2021-07-23] MEDS: DOCUSATE SODIUM 250 MG CAPSULE PO SCH (10:09)
[2021-07-23] MEDS: ASPIRIN 81 MG TAB.CHEW PO SCH (10:09)
[2021-07-23] MEDS: ASCORBIC ACID 500 MG TABLET PO SCH (10:09)
[2021-07-23] MEDS: SPIRONOLACTONE 25 MG TABLET (ALDACTONE) PO SCH (10:09)
[2021-07-23] MEDS: amLODIPine BESYLATE 5 MG TABLET PO SCH (10:09)
[2021-07-23] MEDS: LABETALOL HCL 100 MG TABLET PO SCH (10:10)
[2021-07-23] MEDS: INSULIN GLARGINE 100 UNITS/ML 10 ML VIAL SQ SCH (10:10)
[2021-07-23] MEDS: CHOLECALCIFEROL (VITAMIN D3) 5,000 UNIT TABLET PO SCH (10:10)
[2021-07-23] MEDS: ENOXAPARIN SODIUM 40 MG/0.4 ML SYRINGE SUBCUT SCH (10:11)
[2021-07-23 12:00] VITALS: BP_SYST 140
[2021-07-23 12:06] VITALS: BP_SYST 148
[2021-07-23] MEDS: FLUCONAZOLE 100 mg/ NS 50 ML IV SCH (14:00)
--- NOTE | 2021-07-23 15:21 | NUR ---
Need SSW patient is medically clear to discharge home, patient refusing to discharge home. Per conversation with patient nurse, they have call the dtra and she agreed to pickler helper patient , this took place at 1:30PM.
[2021-07-23 16:00] VITALS: BP_SYST 138
[2021-07-23] MEDS: 0.45% NACL 1,000 ML IV SCH (16:54)
[2021-07-23] MEDS: MONTELUKAST 10 MG TABLET PO SCH (17:09)
--- NOTE | 2021-07-23 18:04 | NUR ---
Pt escorted out via wheelchair. Daughter Samantha picked up pt. All belongings sent with pt. Reviewed discharge instructions with pt and daughter. All questions answered and addressed. VSS. IV site d/cd.
--- NOTE | 2021-07-24 07:22 | NUR ---
PHYSICAL THERAPY CO-SIGN The Physical Therapy Progress Notes documented by Whiskey Filterer have been reviewed. Reviewed/Co-Signed by: Valentin Sena Documentation Done by: JOSE RODRIGUEZ PTA Addendum: 07/24/21 at 0722 by Valentin Sena PT Amended: Links added.
== END 2021-07-23 18:00 | disposition home health service (06) | DRG 871 ==
LOC: SED 20:43 → SMU 07-17 02:07
PROVIDERS: ADMIT Internal Medicine Hospice and Palliative Medicine; ATTEND Internal Medicine Hospice and Palliative Medicine
DX: A41.9 Sepsis, unspecified organism (principal); U07.1 COVID-19; J12.82 Pneumonia due to coronavirus disease 2019; G93.41 Metabolic encephalopathy; J96.01 Acute respiratory failure with hypoxia; N17.0 Acute kidney failure with tubular necrosis; F03.90 Unspecified dementia, unspecified severity, without behavioral disturbance, psychotic disturbance, mood disturbance, and anxiety; I12.9 Hypertensive chronic kidney disease with stage 1 through stage 4 chronic kidney disease, or unspecified chronic kidney disease; E11.22 Type 2 diabetes mellitus with diabetic chronic kidney disease; N18.30 Chronic kidney disease, stage 3 unspecified; E11.65 Type 2 diabetes mellitus with hyperglycemia; Z79.82 Long term (current) use of aspirin; Z79.899 Other long term (current) drug therapy; Z87.440 Personal history of urinary (tract) infections
CPT/HCPCS: 36415; 70450-TC; 71045; 74021; 76376; 80048; 80053; 81000; 82728; 82962; 83690; 83735; 83880; 84100; 85025; 85379; 86140; 87086; 93005; 96361; 96374; 99285; J0456; J0696; J1100; J1450; J1650; J1815; J2001; J2405; J7050; J7060

== ENCOUNTER 2022-02-23 18:42 | Inpatient (IN) | payer BC, MEDICAID ==
[~2022-02-23] VITALS: Ht 152.4 cm; Wt 57.6 kg
[~2022-02-23 18:42] MED LIST changes: +ALBU8.5H8 INH; +DEC1 PO; +INSU100V9 SQ; -INSU100V9 SUBCUT; -LABE100T5 PO; +LABE100T8 PO; -LEVO500T90 PO; +TRAZ-250 PO
[2022-02-23 19:27] VITALS: BP_SYST 165
--- NOTE | 2022-02-23 19:29 | NUR ---
PER PATIENT, PATIENT HAS BEEN HAVING BACK PAIN THAT RADIATES TO RIGHT LEG AND ABDOMEN THAT IS GETTING INCREASINGLY WORSE LATELY. NORMALLY ABLE TO AMBULATE WITHOUT ISSUE EXCEPT NOW WITH PAIN INCREASING.
--- NOTE | 2022-02-23 21:36 | NUR ---
First contact with patient at this time. Patient A/Ox4, VSS, ambulatory, resp even and unlabored. Patient c/o lower back pain radiating to the right leg; reports pain level 10/10 at this time. Patient able to move upper and lower extremities without assistance at this time. NAD noted at this time.
--- NOTE | 2022-02-23 22:13 | NUR ---
Patient sleeping in bed with side rails raised. Nad noted at this time.
--- NOTE | 2022-02-23 22:28 | NUR ---
ALBER Boyce at bedside.
[2022-02-23] MEDS ORDERED: MORPHINE 4 MG INJ. 4 MG/ML VIAL IVP ONE (22:45)
[2022-02-23 23:26] LABS: BASOPHILS # (AUTO) 0.1 K/uL (0.0-0.2); BASOPHILS % (AUTO) 0.6 % (0.0-2.0); EOSINOPHILS # (AUTO) 0.2 K/uL (0.0-0.4); EOSINOPHILS % (AUTO) 1.3 % (0.0-4.0); HEMATOCRIT 31.9 % (36-48); HEMOGLOBIN 10.1 g/dL (12.0-16.0); LYMPHOCYTES % (AUTO) 14.5 % (20.5-51.5); MEAN CORPUSCULAR HEMOGLOBIN 22 pg (27-31); MEAN CORPUSCULAR HGB CONC 32 % (32-36); MEAN CORPUSCULAR VOLUME 68 fL (79.0-98.0); MONOCYTES # (AUTO) 1.2 K/uL (0.0-1.0); MONOCYTES % (AUTO) 8.4 % (1.7-9.3); NEUTROPHILS # (AUTO) 10.3 K/uL (1.8-7.7); NEUTROPHILS % (AUTO) 75.2 % (40.0-70.0); PLATELET COUNT (AUTO) 311 K/uL (130-430); RED BLOOD CELL COUNT(AUTO) 4.71 MIL/uL (4.2-6.2); WHITE BLOOD COUNT (AUTO) 13.7 K/uL (4.8-10.8)
[2022-02-23 23:39] LABS: ANION GAP 6 (5-15); CALCIUM 9.3 mg/dL (8.4-11.0); CHLORIDE 99 mmol/L (98-107); CREATININE 1.72 mg/dL (0.55-1.30); GLUCOSE 213 mg/dL (70-99); POTASSIUM 3.8 mmol/L (3.5-5.1); SODIUM SERUM 133 mmol/L (136-145); UREA NITROGEN, BLOOD 36 mg/dL (8-21)
--- NOTE | 2022-02-23 23:40 | NUR ---
# 22 gauge angiocath placed to right wrist. Use of asceptic technique. Opsite placed over site. Blood return noted. Flushed with 10 cc of normal saline. No evidence of infiltration noted. Patient tolerated well.
[2022-02-23 23:46] LABS: ALANINE AMINOTRANSFERASE 16 U/L (12-78); ALBUMIN 2.7 g/dL (3.4-4.8); ASPARTATE AMINOTRANSFERASE 17 U/L (10-37); TOTAL BILIRUBIN 0.4 mg/dL (0.0-1.0)
--- NOTE | 2022-02-23 23:54 | NUR ---
Patient resting comfortably in bed with side rails raised. NAD noted at this time.
--- NOTE | 2022-02-24 00:49 | NUR ---
Patient taken to xrays via gurney; accompanied by radiology.
--- NOTE | 2022-02-24 01:04 | NUR ---
Patient back from xrays via gurney; accompanied by radiology.
[2022-02-24] MEDS ORDERED: cefTRIAXone 1 GM VIAL ONE (01:15)
[2022-02-24] MEDS ORDERED: cefTRIAXone 1 GM in D5W 50 ML IV ONE (01:15)
[2022-02-24] MEDS ORDERED: NACL 0.9% 1,000 ML IV ONE (01:15)
[2022-02-24 03:18] LABS: BILIRUBIN,URINE NEGATIVE (NEGATIVE); BLOOD, URINE 1+ (NEGATIVE); CLARITY/URINE CLEAR (CLEAR); COLOR,URINE YELLOW (YELLOW); GLUCOSE,URINE 2+ (NEGATIVE); KETONES,URINE NEGATIVE (NEGATIVE); LEUKOCYTE ESTERASE ,URINE NEGATIVE (NEGATIVE); NITRITE, URINE NEGATIVE (NEGATIVE); PROTEIN URINE 3+ (NEGATIVE); UROBILINOGEN,URINE 0.2 (0.2-1.0)
--- NOTE | 2022-02-24 03:38 | NUR ---
Patient sleeping comfortably in bed with side rails raised. NAD noted at this time.
[2022-02-24] MEDS ORDERED: MAGNESIUM CITRATE 300 ML ORAL SOLUTION PO ONE (05:30)
[2022-02-24] MEDS ORDERED: SENN8.6T19 PO (05:42)
[2022-02-24] MEDS ORDERED: DOCU-144 PO (05:42)
[2022-02-24] MEDS ORDERED: SODIUM PHOSPHATE,MONO-DIBASIC 133 ML ENEMA RC ONE (07:00)
[2022-02-24] MEDS ORDERED: LACTULOSE 20 GM/30 ML UDC PO ONE (07:15)
--- NOTE | 2022-02-24 07:45 | NUR ---
Report given to Paula RN to assume care of patient at this time.
--- NOTE | 2022-02-24 07:57 | NUR ---
PT WITH EYES CLOSED, IN NAD. RESP EVEN AND UNLABORED, ON RA @97%. SAFETY PREACUTIONS IN PLACE, WILL CONT TO MONITOR. WAIITNG FOR DISPOSITION. DR EDUARDO INFORMED OF PT STATUS.
--- NOTE | 2022-02-24 10:30 | NUR ---
Assisted primary nurse with bed linen change and cleansing of perineum. Pt loose yellow stools, nausea and 1 episode of emesis. Informed MD Nur. Pt repositioned, cleansed and denies complaints at this time.
--- NOTE | 2022-02-24 12:14 | NUR ---
NO ADMITTING ORDERS RECEIVED YET, FARZANA SOTO MADE AWARE.
[2022-02-24] MEDS ORDERED: NOR10 PO (12:51)
[2022-02-24] MEDS ORDERED: LOSA100T3 PO (12:52)
[2022-02-24] MEDS ORDERED: amLODIPine BESYLATE 10 MG TABLET PO ONE ×2 (13:00→13:45)
[2022-02-24] MEDS ORDERED: LOSARTAN POTASSIUM 50 MG TABLET (COZAAR) PO ONE (13:00)
--- NOTE | 2022-02-24 13:02 | NUR ---
ANTIHYPERTENSIVES ORDERED NOT IN P[facility]. I CALLED PHARM AND LEFT MESSAGE
--- NOTE | 2022-02-24 13:35 | NUR ---
Admit bed requested Patient will be admitted to care of . Admitted to M/S unit. Diagnosis CONSTIPATION Inpatient (Yes or No) Y Observation (Yes or No) N Orientation concerns or request close to nursing station (Yes or No) N Covid Status NEG On vent or bipap NO Isolation requirements NO Needs a sitter NO From Home (Yes or if No enter name of facility) YES Requires Dialysis (Yes or No) NO Med Rec Completed (Yes of No) YES
--- NOTE | 2022-02-24 14:33 | NUR ---
Note kevinben in EDM - 02/24/22 at 1434 by URBANO Admit bed requested Patient will be admitted to care of Admitted to Med Surg unit. Diagnosis Constipation Inpatient (Yes or No) Yes Observation (Yes or No) No Orientation concerns or request close to nursing station (Yes or No) No Covid Status neg. On vent or bipap No Isolation requirements NO Needs a sitter No From Home (Yes or if No enter name of facility) Yes Requires Dialysis (Yes or No) yes Med Rec Completed (Yes of No) yes
--- NOTE | 2022-02-24 14:34 | NUR ---
Pt BP 151/75 pt comfortable resting in bed without complaints.
--- NOTE | 2022-02-24 14:53 | NUR ---
Patient will be admitted to [facility]. Admitted to Med surg unit. Will go to room 119 . Belongings list completed. Complete and up to date summary report printed. SBAR report given by telephone with opportunity for questions.
--- NOTE | 2022-02-24 15:00 | NUR ---
ADMISSION NOTES, RECEIVED PT FROM E.RPeter WITH DIAGNOSIS OF CONSTIPATION, PT WILL BE UNDERS THE CARE OF DR GRAMAJO. PT EDUCATED ON THE USE OF CALL LIGHT , TV AND BED CONTROLS , ENCOURAGED TO CALL FOR ASSISTANCE AND ANY OTHER CONCERNS.
[2022-02-24 15:27] VITALS: BP_SYST 159
[2022-02-24 16:00] VITALS: BP_SYST 141
--- NOTE | 2022-02-24 16:08 | NUR ---
Attending md ground transportation operator Dr Valentin was called, re: diet order. Spoke to Yessica
--- NOTE | 2022-02-24 19:30 | NUR ---
Opening note Received report from day shift. Pt is awake resting in bed watching TV. No s/s of respiratory distress. Breathing even and unlabored. IV site intact and patent saline lock. Fall and safety precautions in place with bed in lowest position, bed alarm on, and call light within reach
[2022-02-24 20:00] VITALS: BP_SYST 141
--- NOTE | 2022-02-24 21:46 | NUR ---
Jerem[facility] Mcduffie, [facility] covering for inna gilbert/jerardo Palacio
--- NOTE | 2022-02-24 22:28 | NUR ---
Second Paged for Sinan Orellana s/w Pia
[2022-02-24] MEDS: MORPHINE 4 MG INJ. 4 MG/ML VIAL IVP PRN (23:14)
[2022-02-24] MEDS: INSULIN REGULAR, HUMAN 100 UNITS/ML, 10 ML VIAL (humuLIN R) SUBCUT PRN (23:26)
--- NOTE | 2022-02-25 00:15 | NUR ---
Rounds Pt resting in bed, eyes closed. No s/s of acute distress. Fall and safety checks in place
[2022-02-25 00:36] VITALS: BP_SYST 135
--- NOTE | 2022-02-25 03:15 | NUR ---
Rounds Pt resting in bed, eyes closed. No s/s of acute distress. VSS stable
--- NOTE | 2022-02-25 06:59 | NUR ---
Closing note Pt is awake resting in bed watching TV. No s/s of respiratory distress. Breathing even and unlabored. IV site intact and patent saline lock. All needs met throughout shift. Fall and safety precautions in place with bed in lowest position, bed alarm on, and call light within reach
[2022-02-25 07:00] VITALS: BP_SYST 138
[2022-02-25 08:00] VITALS: BP_SYST 130
--- NOTE | 2022-02-25 10:59 | NUR ---
CONSULTATION PAGED/CALLED Reason for Consultation: [] RENAL FAILURE Person Who was Notified: [] RONNY Consulting Physician: [] BETTY CAPPS Ski Edge Painter Specialty: [] NEPHRO Ordering Physician: [] MATA TOTH
[2022-02-25 11:35] LABS: BASOPHILS # (AUTO) 0.1 K/uL (0.0-0.2); EOSINOPHILS # (AUTO) 0.5 K/uL (0.0-0.4); EOSINOPHILS % (AUTO) 4.2 % (0.0-4.0); HEMATOCRIT 31.4 % (36-48); HEMOGLOBIN 10.1 g/dL (12.0-16.0); LYMPHOCYTES # (AUTO) 1.8 K/uL (1.0-5.5); LYMPHOCYTES % (AUTO) 16.7 % (20.5-51.5); MEAN CORPUSCULAR HEMOGLOBIN 22 pg (27-31); MEAN CORPUSCULAR HGB CONC 32 % (32-36); MEAN CORPUSCULAR VOLUME 68 fL (79.0-98.0); MONOCYTES # (AUTO) 0.9 K/uL (0.0-1.0); MONOCYTES % (AUTO) 8.4 % (1.7-9.3); NEUTROPHILS # (AUTO) 7.6 K/uL (1.8-7.7); NEUTROPHILS % (AUTO) 69.7 % (40.0-70.0); PLATELET COUNT (AUTO) 328 K/uL (130-430); RED BLOOD CELL COUNT(AUTO) 4.61 MIL/uL (4.2-6.2); RED CELL DISTRIBUTION WIDTH 15.1 % (9.0-15.0); WHITE BLOOD COUNT (AUTO) 10.9 K/uL (4.8-10.8)
[2022-02-25 11:56] LABS: ALANINE AMINOTRANSFERASE 14 U/L (12-78); ALBUMIN 2.6 g/dL (3.4-4.8); ANION GAP 8 (5-15); ASPARTATE AMINOTRANSFERASE 17 U/L (10-37); CHLORIDE 101 mmol/L (98-107); CREATININE 1.42 mg/dL (0.55-1.30); GLUCOSE 241 mg/dL (70-99); PHOSPHORUS 3.1 mg/dL (2.7-4.5); POTASSIUM 3.8 mmol/L (3.5-5.1); SODIUM SERUM 134 mmol/L (136-145); TOTAL BILIRUBIN 0.2 mg/dL (0.0-1.0); UREA NITROGEN, BLOOD 30 mg/dL (8-21)
[2022-02-25 12:00] VITALS: BP_SYST 138
--- NOTE | 2022-02-25 14:17 | NUR ---
CONSULTATION PAGED REASON FOR CONSULTATION:NEW LEFT SIDE WEAKNESS WAS CONSULT CALLED?Y -PERSON WHO WAS NOTIFIED:TEXT MESSAGED KAI MARTI CONSULTING PHYSICIAN:KAI MARTI LAP LAYER SPECIALTY:NEURO LAP LAYER PHONE NUMBER:[phone] REQUESTING PHYSICIAN:MATA ELLIOTT
[2022-02-25 16:00] VITALS: BP_SYST 164
[2022-02-25] MEDS: LACTULOSE 20 GM/30 ML UDC PO SCH ×2 (17:15→22:45)
[2022-02-25] MEDS: MORPHINE 4 MG INJ. 4 MG/ML VIAL IVP PRN (17:27)
--- NOTE | 2022-02-25 19:30 | NUR ---
Opening note Received report from day shift. Pt is awake resting in bed with family at bedside. No s/s of respiratory distress. Breathing even and unlabored. No IV site. Fall and safety precautions in place with bed in lowest position, bed alarm on, and call light within reach
--- NOTE | 2022-02-25 20:09 | NUR ---
Jeremi Mcduffie, [facility] Stephany
[2022-02-25] MEDS: INSULIN REGULAR, HUMAN 100 UNITS/ML, 10 ML VIAL (humuLIN R) SUBCUT PRN (20:18)
[2022-02-25] MEDS ORDERED: LOSARTAN POTASSIUM 50 MG TABLET (COZAAR) PO ONE (21:30)
[2022-02-25] MEDS ORDERED: hydrALAZINE HCL 20 MG/ML VIAL IVP PRN (21:30)
[2022-02-25] MEDS ORDERED: amLODIPine BESYLATE 10 MG TABLET PO ONE (21:30)
[2022-02-25] MEDS: ALPRAZolam 0.25 MG TABLET PO PRN (22:53)
[2022-02-26 00:38] VITALS: BP_SYST 142
[2022-02-26] MEDS: LACTULOSE 20 GM/30 ML UDC PO SCH ×4 (06:47→22:45)
[2022-02-26] MEDS: INSULIN REGULAR, HUMAN 100 UNITS/ML, 10 ML VIAL (humuLIN R) SUBCUT PRN ×2 (06:53→21:28)
--- NOTE | 2022-02-26 07:20 | NUR ---
Closing note Pt is awake resting in bed. No s/s of respiratory distress. Breathing even and unlabored. Found that pt pulled IV that was inserted last night, will endorse to day shift. Fall and safety precautions in place with bed in lowest position, bed alarm on, and call light within reach
[2022-02-26] MEDS: LOSARTAN POTASSIUM 50 MG TABLET (COZAAR) PO SCH (09:00)
[2022-02-26] MEDS: amLODIPine BESYLATE 10 MG TABLET PO SCH (09:00)
[2022-02-26 11:20] VITALS: BP_SYST 140
[2022-02-26] MEDS: ALPRAZolam 0.25 MG TABLET PO PRN ×2 (12:24→22:31)
--- NOTE | 2022-02-26 14:33 | NUR ---
NOTES: called Dr. Contreras per nurse Maldonado to follow up a consult. pt. was seen yesterday. spoke with Dr. Renetta Bullock and informed Code Stroke was called. ordered MRI stat and verified.
[2022-02-26 16:33] VITALS: BP_SYST 154
--- NOTE | 2022-02-26 17:11 | NUR ---
ST EVALUATION COMPLETED. ST TX NOT INDICATED AT THIS TIME. RECOMMEND MECHANICAL SOFT AND THIN LIQUID DIET. ASSISTANCE FOR MEALS NEEDED AND FULL ASPIRATION PRECAUTIONS.
[2022-02-26 19:00] VITALS: BP_SYST 127
[2022-02-26 20:00] VITALS: BP_SYST 127
[2022-02-27] MEDS: LACTULOSE 20 GM/30 ML UDC PO SCH ×3 (06:07→21:57)
--- NOTE | 2022-02-27 07:30 | NUR ---
OPENING NOTES: PATIENT IS RESTING IN BED QUIETLY. AAOX4 W/ EPISODE OF FORGETFULNESS AND CONFUSION. ABLE TO MAKE NEEDS KNOWN. NO DISTRESS OR PAIN NOTED AT THIS TIME. EXPLAINED POC AND PATIENT VERBALIZED UNDERSTANDING. . ABLE TO MOVE R SIDE OF BODY FREELY BUT LEFT SIDE BODY WEAKNESS. WEAK HAND LEG BREAKER TO THE LEFT HAND. EDUCATE PATIENT TO CALL THE NURSE FOR BEDPAN SO UA CAN BE COLLECTED. PATIENT LIKES TO WEAR HER OWN PULL UPS. BED IN LOW AND LOCK POSITION. BED ALARM ON. CALL LIGHT AND BEDSIDE TABLE WITHIN REACH. STABLE CONDITION.
[2022-02-27 08:00] VITALS: BP_SYST 144
[2022-02-27] MEDS: LOSARTAN POTASSIUM 50 MG TABLET (COZAAR) PO SCH (10:30)
[2022-02-27] MEDS: amLODIPine BESYLATE 10 MG TABLET PO SCH (10:31)
[2022-02-27 12:00] VITALS: BP_SYST 158
[2022-02-27] MEDS: INSULIN REGULAR, HUMAN 100 UNITS/ML, 10 ML VIAL (humuLIN R) SUBCUT PRN ×3 (12:19→22:05)
[2022-02-27 16:00] VITALS: BP_SYST 145
--- NOTE | 2022-02-27 17:17 | NUR ---
MRI RESULTS: SPOKE WITH DR COLON AND READ HIM THE MRI REPORT OVER THE PHONE. NEW ORDER OF ASPIRIN 81MG PO QD AND LIPID PANEL FOR TOMORROW MORNING 02/28/22.
[2022-02-27] MEDS ORDERED: ASPIRIN 81 MG TAB.CHEW PO ONE (17:30)
--- NOTE | 2022-02-27 18:50 | NUR ---
CLOSING NOTES: PATIENT IS RESTING IN BED TRYING TO EAT HER DINNER. NO ADDITIONAL DISTRESS NOTED. ALL NEEDS MET. STABLE CONDITION.
[2022-02-27 19:00] VITALS: BP_SYST 157
[2022-02-28] VITALS: BP_SYST 157
[2022-02-28] MEDS: ALPRAZolam 0.25 MG TABLET PO PRN ×2 (00:10→22:18)
[2022-02-28] MEDS: LACTULOSE 20 GM/30 ML UDC PO SCH ×3 (06:40→22:18)
--- NOTE | 2022-02-28 07:30 | NUR ---
OPENING NOTES: PATIENT IS RESTING IN BED QUIETLY. AAOX3 TO PERSON, PLACE, AND EVENT W/ EPISODE OF FORGETFULNESS AND CONFUSION. ABLE TO MAKE NEEDS KNOWN. NO DISTRESS OR PAIN NOTED AT THIS TIME. EXPLAINED POC AND PATIENT VERBALIZED UNDERSTANDING. HOWEVER NEED EDUCATIONAL REINFORCEMENT. ABLE TO MOVE R SIDE OF BODY FREELY BUT LEFT SIDE BODY WEAKNESS. WEAK HAND PUBLIC UTILITIES SALES REPRESENTATIVE TO THE LEFT HAND. EDUCATE PATIENT TO CALL THE NURSE FOR BEDPAN SO UA CAN BE COLLECTED. PER PATIENT SHE WILL TRY TO CALL THE NURSE. PATIENT LIKES TO WEAR HER OWN PULL UPS. BED IN LOW AND LOCK POSITION. BED ALARM ON. CALL LIGHT AND BEDSIDE TABLE WITHIN REACH. STABLE CONDITION.
[2022-02-28 07:33] LABS: ALANINE AMINOTRANSFERASE 18 U/L (12-78); ALBUMIN 2.6 g/dL (3.4-4.8); ANION GAP 8 (5-15); ASPARTATE AMINOTRANSFERASE 24 U/L (10-37); CALCIUM 9.2 mg/dL (8.4-11.0); CHLORIDE 103 mmol/L (98-107); CREATININE 1.83 mg/dL (0.55-1.30); GLUCOSE 168 mg/dL (70-99); SODIUM SERUM 136 mmol/L (136-145); TOTAL BILIRUBIN 0.2 mg/dL (0.0-1.0); UREA NITROGEN, BLOOD 38 mg/dL (8-21)
[2022-02-28 08:00] VITALS: BP_SYST 148
[2022-02-28 08:12] LABS: BASOPHILS # (AUTO) 0.2 K/uL (0.0-0.2); BASOPHILS % (AUTO) 1.3 % (0.0-2.0); EOSINOPHILS # (AUTO) 0.8 K/uL (0.0-0.4); EOSINOPHILS % (AUTO) 6.5 % (0.0-4.0); HEMOGLOBIN 9.9 g/dL (12.0-16.0); LYMPHOCYTES # (AUTO) 2.3 K/uL (1.0-5.5); LYMPHOCYTES % (AUTO) 18.8 % (20.5-51.5); MEAN CORPUSCULAR HEMOGLOBIN 22 pg (27-31); MEAN CORPUSCULAR HGB CONC 32 % (32-36); MEAN CORPUSCULAR VOLUME 68 fL (79.0-98.0); MONOCYTES # (AUTO) 1.1 K/uL (0.0-1.0); MONOCYTES % (AUTO) 9.3 % (1.7-9.3); NEUTROPHILS # (AUTO) 7.8 K/uL (1.8-7.7); NEUTROPHILS % (AUTO) 64.1 % (40.0-70.0); PLATELET COUNT (AUTO) 350 K/uL (130-430); RED BLOOD CELL COUNT(AUTO) 4.53 MIL/uL (4.2-6.2); RED CELL DISTRIBUTION WIDTH 14.9 % (9.0-15.0); WHITE BLOOD COUNT (AUTO) 12.1 K/uL (4.8-10.8)
[2022-02-28] MEDS: ASPIRIN 81 MG TAB.CHEW PO SCH (09:02)
[2022-02-28] MEDS: LOSARTAN POTASSIUM 50 MG TABLET (COZAAR) PO SCH (09:02)
[2022-02-28] MEDS: amLODIPine BESYLATE 10 MG TABLET PO SCH (09:09)
[2022-02-28 09:42] LABS: CHOLESTEROL 275 mg/dL (<200); HDL CHOLESTEROL 55 mg/dL (>55); LDL CHOLESTEROL 175 mg/dL (<100); TRIGLYCERIDES 230 mg/dL (30-150)
[2022-02-28] MEDS ORDERED: D5W 1,000 ML IV PRN (10:30)
[2022-02-28] MEDS ORDERED: GLUCOSE (DEXTROSE) ORAL GEL -Adults PO PRN (10:30)
[2022-02-28] MEDS ORDERED: DEXTROSE 50%-WATER 50 ML DISP.SYRIN IVP PRN (10:30)
[2022-02-28 11:09] LABS: BILIRUBIN,URINE NEGATIVE (NEGATIVE); CLARITY/URINE CLEAR (CLEAR); COLOR,URINE YELLOW (YELLOW); GLUCOSE,URINE 1+ (NEGATIVE); KETONES,URINE TRACE (NEGATIVE); LEUKOCYTE ESTERASE ,URINE 1+ (NEGATIVE); NITRITE, URINE NEGATIVE (NEGATIVE); PH,URINE 5.5 (5.0-8.0); PROTEIN URINE 2+ (NEGATIVE); UROBILINOGEN,URINE 0.2 (0.2-1.0)
[2022-02-28 11:40] VITALS: BP_SYST 144
[2022-02-28 11:45] LABS: BLOOD, URINE TRACE (NEGATIVE)
[2022-02-28] MEDS: INSULIN REGULAR, HUMAN 100 UNITS/ML, 10 ML VIAL (humuLIN R) SUBCUT PRN ×2 (12:03→18:07)
[2022-02-28 12:53] LABS: BACTERIA,URINE FEW /HPF (None Seen); MUCUS,URINE 1+ /LPF (None Seen); RBC,URINE 0-3 /HPF (0-3)
--- NOTE | 2022-02-28 14:42 | NUR ---
Need PT evaluation to determine needs snf vs acute inpt rehab
[2022-02-28 17:17] LABS: URINE SODIUM, RANDOM 57 mmol/L (40-220)
[2022-02-28 17:25] VITALS: BP_SYST 140
--- NOTE | 2022-02-28 18:53 | NUR ---
CLOSING NOTES: PATIENT IS RESTING IN BED WITH HER FAMILY FRIENDS SURROUNDING HER. NO ADDITIONAL DISTRESS NOTED. ALL NEEDS MET. STABLE CONDITION.
[2022-02-28 20:10] VITALS: BP_SYST 156
[2022-03-01] VITALS: BP_SYST 151
[2022-03-01] MEDS: LACTULOSE 20 GM/30 ML UDC PO SCH ×2 (06:38→14:37)
[2022-03-01] MEDS: INSULIN REGULAR, HUMAN 100 UNITS/ML, 10 ML VIAL (humuLIN R) SUBCUT PRN ×3 (06:53→17:13)
--- NOTE | 2022-03-01 07:30 | NUR ---
OPENING NOTES: PATIENT IS RESTING IN BED QUIETLY. AAOX3 TO PERSON, PLACE, AND EVENT W/ EPISODE OF FORGETFULNESS AND CONFUSION. ABLE TO MAKE NEEDS KNOWN. NO DISTRESS OR PAIN NOTED AT THIS TIME. EXPLAINED POC AND PATIENT VERBALIZED UNDERSTANDING. HOWEVER NEED EDUCATIONAL REINFORCEMENT. ABLE TO MOVE R SIDE OF BODY FREELY BUT LEFT SIDE BODY WEAKNESS. WEAK HAND DATE PITTER TO THE LEFT HAND. PATIENT WILL BE SEEN BY PT TODAY PRIOR TO DC TO [facility]. BED IN LOW AND LOCK POSITION. BED ALARM ON. CALL LIGHT AND BEDSIDE TABLE WITHIN REACH. STABLE CONDITION.
[2022-03-01 08:00] VITALS: BP_SYST 152
[2022-03-01] MEDS: ASPIRIN 81 MG TAB.CHEW PO SCH (08:45)
[2022-03-01] MEDS: amLODIPine BESYLATE 10 MG TABLET PO SCH (08:46)
[2022-03-01] MEDS: LOSARTAN POTASSIUM 50 MG TABLET (COZAAR) PO SCH (08:46)
[2022-03-01] MEDS ORDERED: ATORVASTATIN 20 MG TABLET PO SCH (09:00)
[2022-03-01 12:17] VITALS: BP_SYST 134
--- NOTE | 2022-03-01 15:31 | NUR ---
patient [facility] to [facility] room [address] [place] [address] [phone] medic 1 ambulance mixing picker tender 20:45 [phone] trk# [id number] called th patient pino Avila , she is ok with transfer called the floor and spoke with Kit provided facility name and mixing picker tender time, informed her all note will be in chart
[2022-03-01 16:10] VITALS: BP_SYST 152
--- NOTE | 2022-03-01 16:12 | NUR ---
SBAR REPORT GIVEN: SBAR REPORT GIVEN TO ARLEY LESTER AT [facility] [phone]. PATIENT ROOM 14 A. ETA FOR MEDIC 1 TROUT FARMER AT 2044. PATIENT AND FAMILY AT THE BEDSIDE IS AWARE.
--- NOTE | 2022-03-01 16:26 | NUR ---
CALL BACK FROM IQRA MIJARES: RECEIVED A CALL BACK FROM ARLEY AT [facility] THAT THEY ARE NOT GOING TO ACCEPT PATIENT DUE TO CONSTIPATION AND SHE HASNT HAVE A BOWEL MOVEMENT SINCE ADMITTED TO THE HOSPITAL. CALL [facility] [place] AND MADE HER AWARE OF THE SITUATION. PAGED DR VO. AWAITING FOR CALL BACK.
--- NOTE | 2022-03-01 16:38 | NUR ---
DR VO CALLED BACK: NEW ORDER RECEIVED FROM FOR BOWEL MOVEMENT. MD AWARE THAT PATIENT WILL NOT BE ACCEPTED AT REHAB TILL SHE HAS A BOWEL MOVEMENT.
[2022-03-01] MEDS ORDERED: POLYETHYLENE GLYCOL 3350, 17 GM/ POWD.PACK PO ONE (17:00)
[2022-03-01] MEDS ORDERED: DOCUSATE SODIUM 250 MG CAPSULE PO ONE (17:00)
[2022-03-01] MEDS ORDERED: LACTULOSE 20 GM/30 ML UDC PO SCH (17:00)
--- NOTE | 2022-03-01 19:00 | NUR ---
LARGE BOWEL MOVEMENT: PATIENT HAD A LARGE BOWEL MOVEMENT. WILL CALL IQRA MIJARES TO GIVE REPORT.
--- NOTE | 2022-03-01 19:20 | NUR ---
SBAR REPORT GIVEN TO IQRA MIJARES: GAVE SBAR REPORT GIVEN TO SONY LEIJA RN. PATIENT HAD A LARGE BM. ETA FOR MEDIC 1 FOR FITNESS TEACHER IS AT 2044.
[2022-03-01 19:44] VITALS: BP_SYST 152
[2022-03-01 20:00] VITALS: BP_SYST 130
--- NOTE | 2022-03-01 20:00 | NUR ---
DC PAPER: CANNOT FINALIZED DC PAPER DUE TO ERROR IN MEDICATION RECONCILIATION. MEDIC 1 JUST ARRIVED AT THE BEDSIDE. PRINT AVAILABLE SECTION OF DC PAPER.
--- NOTE | 2022-03-01 20:20 | NUR ---
MEDIC 1 : MEDIC 1 AT THE BEDSIDE. GAVE SBAR REPORT. TRIED CALLING LA NENA (PATIENT'S NIECE X2) PER PATIENT REQUEST USING HER CELL PHONE TO LET HER KNOW THAT SHE IS BEING TRANSFER RIGHT NOW. NO ANSWERS. ALSO TRIED CALLING HER BEST FRIEND "BABY" PER PATIENT REQUEST BUT THE PICKED UP THE PHONE AND STATED THAT "BABY" WILL CALL THE PATIENT BACK.
--- NOTE | 2022-03-01 20:25 | NUR ---
PT TRANSFERRED Patient transferred to [facility] via Medic 1. Transfer packet with Transfer Orders and Medication Reconciliation form given to EMT with report. Exitcare provided. [facility] ID band removed. IV catheter removed, intact and dressing applied, no active bleeding. All belongings sent with patient. Patient left floor via gurney escorted by EMT in no distress.
[2022-03-01] MEDS ORDERED: DOCUSATE SODIUM 250 MG CAPSULE PO SCH (21:00)
[2022-03-02] MEDS ORDERED: POLYETHYLENE GLYCOL 3350, 17 GM/ POWD.PACK PO SCH (09:00)
== END 2022-03-01 20:20 | DRG 64 ==
LOC: SED 18:42 → SMU 02-24 13:33
PROVIDERS: ADMIT Internal Medicine Nephrology; ATTEND Internal Medicine Nephrology
DX: I63.89 Other cerebral infarction (principal); E43 Unspecified severe protein-calorie malnutrition; G81.94 Hemiplegia, unspecified affecting left nondominant side; M54.9 Dorsalgia, unspecified; I10 Essential (primary) hypertension; E11.9 Type 2 diabetes mellitus without complications; K59.00 Constipation, unspecified; R29.708 NIHSS score 8; E78.5 Hyperlipidemia, unspecified; Z20.822 Contact with and (suspected) exposure to COVID-19; E78.00 Pure hypercholesterolemia, unspecified; J45.909 Unspecified asthma, uncomplicated; Z79.899 Other long term (current) drug therapy
CPT/HCPCS: 36415; 70450-TC; 70551; 72100-TC; 76376; 76770; 80053; 80061; 81000; 81003; 82570; 82962; 83605; 83735; 84100; 84302; 85025; 92610-GN; 93005; 96365; 96375; 99285; J0360; J0696; J1815; J2270